=== PATIENT | female | born 1995 | race Caucasian/White ===

== ENCOUNTER 2020-03-27 20:20 | Emergency (ER) | payer SELFPAY ==
[2020-03-27 20:23] VITALS: BP 130/93; PULSE 99; RESP 16; O2SAT 100; BMI 27.4
--- NOTE | 2020-03-27 20:23 | ED_ITS ---
HPI - Overdose General: Chief Complaint: Overdose Stated Complaint: HEROIN OD Time Seen by Provider: 03/27/20 20:21 Source: patient Mode of arrival: ambulatory Limitations: no limitations History of Present Illness: HPI Narrative: 25-year-old female who was found unresponsive and given intranasal Narcan by police. When EMS arrived they states she was agonal breathing and unresponsive but since is now awake. She admitted to using heroin. She denies any suicide attempt and states she was using it recreationally. She has no complaints at that time. complaint: accidental overdose Onset (ago): minute(s) Review of Systems Const: Denies: fever(s), chills, body aches or change in appetite Eyes: Denies: blurry vision or eye discomfort ENMT: Denies: throat pain or dental pain Card: Denies: chest pain Resp: Denies: dyspnea GI: Denies: abdominal pain, nausea, vomiting or diarrhea : Denies: dysuria Musc: Denies: neck pain or back pain Skin/Breast: Denies: rash Neuro: Denies: headache(s) Psych: Denies: depression Alek/Lymph: Denies: easy bruising All/Imm: Denies: urticaria PFSH ED PFSH: Family History Denies family history of Diabetes CAD (coronary artery disease) Clotting disorder Dementia Hyperlipidemia Psychiatric illness Chronic kidney disease (CKD) Suicide Anesthesia complication Bleeding disorder Family history of premature coronary artery disease Lung disease Cancer Hypertension Stroke Social History Smoking and tobacco status: current every day smoker Physical Exam Const: COMMON NORMALS: no acute distress, patient oriented x3 and healthy appearing HENMT: COMMON NORMALS: normocephalic and atraumatic HEAD & SCALP: normocephalic and atraumatic Eye: COMMON NORMALS: Equal, round and reactive pupils present and EOMs intact bilaterally PUPIL: Yes Equal, round and reactive pupils present Neck/C-Spine: COMMON NORMALS: full ROM and supple Chest: COMMONS NORMALS: normal inspection of the chest and normal palpation of entire chest wall Resp: COMMON NORMALS: normal respiratory effort, No retractions, No use of accessory muscles and clear to auscultation bilaterally AUSCULTATION: clear to auscultation bilaterally Cardio: COMMON NORMALS: regular rate, regular rhythm and No murmurs present (Cardio) RATE: regular rate RHYTHM: regular rhythm GI: COMMON NORMALS: Normal to inspection, nondistended, normoactive bowel sounds present, Soft to palpation, non-tender and no masses PALPATION: Yes Soft to palpation Extremity: COMMON NORMALS: normal to inspection and full ROM Neuro: COMMON NORMALS: patient oriented x3, moves all extremities and no focal motor deficits Psych: COMMON NORMALS: mental status grossly normal, Normal thought process present and cooperative THOUGHT PROCESS: Normal thought process present Skin: COMMON NORMALS: no rashes or lesions noted and no wounds GENERAL SKIN EXAM: no rashes or lesions noted Course Vital Signs: Vital signs: Vital Signs Pulse Rate 110 H 03/27/20 20:57 Respiratory Rate 22 H 03/27/20 20:57 Blood Pressure 126/98 03/27/20 20:57 Pulse Oximetry 100 03/27/20 20:57 MDM - Overdose MDM Narrative: Medical decision making narrative: 25-year-old presents here with drug overdose on heroin. Patient is now awake and alert after Narcan is watched here for over an hour. Patient refused any blood draw and states she would like to leave. Patient signed out AMA. Patient has medical decision make capacity and understands the risks. Patient is not suicidal. Discharge Plan Discharge Patient Disposition: Home, Self-Care Clinical Impression: Drug overdose Qualifiers: Encounter type: initial encounter Injury intent: accidental or unintentional Qualified Code(s): T50.901A - Poisoning by unspecified drugs, medicaments and biological substances, accidental (unintentional), initial encounter Condition: Stable Prescriptions: No Action No Known Home Medications RF: 0 Discharge Orders: Discharge Order (Routine); Ordered 03/27/20 Ordered By: Inna Ibrahim Referrals: Tom Gandhi MD [Primary Care Provider] - 1-3 days Discharge Diet: Advance as tolerated Discharge Activity: Resume usual activity Patient Instructions: Polysubstance Abuse (ED) Coding Level of Care Code ED Rehabilitation Supervisor for Arlette Fwd Exam Comprehensive
[2020-03-27] MEDS: sodium chloride 0.9% 1,000 ML 999 ML IV (20:36)
[2020-03-27 20:57] VITALS: BP 126/98; PULSE 110; RESP 22; O2SAT 100
[2020-03-27 21:44] VITALS: BP 99/60; PULSE 100; RESP 20; O2SAT 100
== END 2020-03-27 21:45 | disposition home or self-care (01) ==
PROVIDERS: Emergency Provider Emergency Medicine; PCP Family Medicine
DX: T40.1X1A Poisoning by heroin, accidental (unintentional), initial encounter (principal); F17.210 Nicotine dependence, cigarettes, uncomplicated
CPT/HCPCS: 12345; 96360; 99282; J7030

== ENCOUNTER 2020-06-19 08:23 | Emergency (ER) | payer MEDICAID, SELFPAY ==
[2020-06-19] VITALS (8 sets, daily range): BP systolic 114–118; BP diastolic 82–85; PULSE 82–146; RESP 15–31; TEMP 36.4; O2SAT 98–100; BMI 25.6
--- NOTE | 2020-06-19 08:26 | ECG_ITS ---
Test Date: 2020-06-19 Pat Name: Sallie Hyde Department: Room: Gender: Female Door Person: : 1995 Requested By: Gustavo Beltran Order Number: [id number] Carlene MD: Mahad Santizo M.D. Measurements Intervals [place] Rate: 105 P: 55 MN: 125 QRS: 84 QRSD: 93 T: 44 QT: 345 QTc: 458 Interpretive Statements SINUS TACHYCARDIA Compared to ECG 09/13/2018 07:03:04 Sinus tachycardia now present Electronically Signed On 06-19-2020 19:20:09 CDT by Mahad Santizo M.D. [id number]
--- NOTE | 2020-06-19 08:26 | CT_ITS ---
WS: [id number] EXAM: CT head wo con* [id number] DATE OF EXAMINATION: 06/19/2020, 0853 hours COMPARISON: None. HISTORY: 25 years old with overdose. Altered mental status. TECHNIQUE: Thin slice imaging obtained through the brain without the utilization of contrast. Images viewed in b rain, subdural and bone window with reconstructions. CONTRAST: None DLP: 707.[address] scans at [facility] use at least one of these dose optimization techniques: automat ed exposure control; mA and/or kV adjustment per patient size (includes targeted exams where dose is matched to clinical indication); or iterative reconstruction. FINDINGS: Toussaint-white differentiation is normal. No findings of hemorrhage, hydrocephalus, mass, mass effect or abnormal extra-axial fluid collection is seen. No acute skull abnormality is demonstrated. Extracalv arial soft tissues are unremarkable. Mastoid air cells are pneumatized and well aerated. Some minimal chronic sinusitis changes demonstrated. CT/CT head wo con* [id number] IMPRESSION: No acute intracranial process.
--- NOTE | 2020-06-19 08:26 | XR_ITS ---
WS: [id number] EXAM: AP CHEST: PORTABLE UPRIGHT DATE OF EXAM: 06/19/2020, 0858 hours COMPARISON: Chest x-ray from 09/13/2018 HISTORY: Patient is 25 years old with dyspnea and cough. FINDINGS: The cardiac silhouette is normal in size. The mediastinal contours are normal. The pulmonary vas cularity is normal. The lungs are clear of infiltrate. There is no effusion or pneumothorax. There appears to be an IV catheter overlying the area of the right breast. Please correlate clinically. XR/XR chest 1V portable [id number] IMPRESSION: No acute pulmonary disease.
[2020-06-19] MEDS: naloxone 0.4 mg/ml SDV IVP (08:31)
[2020-06-19 08:40] LABS: Basophils % 0.5 %; Eosinophils # 0.3 10^3/uL (0.0-0.8); Eosinophils % 3.2 %; Hematocrit 35.9 % (37.0-47.0); Lymphocytes # 2.9 10^3/uL (0.8-4.8); Lymphocytes % 37.2 %; Mean Corpuscular HGB Conc 33.4 g/dL (30.0-36.0); Mean Corpuscular Volume 86.7 fL (81-99); Mean Platelet Volume 9.8 fL (7.4-10.4); Monocytes # 0.5 10^3/uL (0.2-0.9); Monocytes % 6.2 %; Neutrophils # 4.15 10^3/uL (1.8-7.7); Neutrophils % 52.5 %; Nucleated Red Blood Cells % 0 %; Platelet Count 187 10^3/cmm (130-400); Red Blood Count 4.14 10^6/uL (4.1-5.3); Red Cell Distribution Width 13.3 % (12.1-15.1); White Blood Count 7.9 10^3/uL (4.0-10.0)
[2020-06-19] MEDS: sodium chloride 0.9% 1,000 ML 999 ML IV (08:43)
[2020-06-19] MEDS: ondansetron 2 mg/ML SDV 2 mL 4 MG IVP (08:43)
[2020-06-19 08:50] LABS: ABG PCO2 22.2 mmHg (35-45); ABG PH Result 7.54 (7.35-7.45); Arterial Blood Gas Hematocrit 34.5 % (37-47); Base Excess ABG -1.8 mmol/L (-2.0-2.0); Blood Gas Allen Test Pos; Blood Gas Operator Identificat CAK; Blood Gas Sample Site Radial, left; Blood Gas Sample Type Arterial; HCO3 ABG 19.2 mmol/L (22-26); HGB O2 Sat 94.9 % (95-100); Ionized Calcium Level - ABG 1.1 mmol/L (1.1-1.4); Methemoglobin 0.9 % (0.4-1.5); Oxygen Device ROOM AIR; Oxygen Saturation ABG 99.7; Total Hemoglobin 11.2 g/dL (12-16)
--- NOTE | 2020-06-19 08:50 | PC.NURSE ---
Patient alert and oriented after 0.4mg of narcan. Patient verbalzied that she is an IV drug user and uses drugs daily. Shot up 30mg of Emily .
--- NOTE | 2020-06-19 08:52 | W.ED.OVERDOS ---
HPI - Overdose General: Chief Complaint: Overdose Stated Complaint: OD Time Seen by Provider: 06/19/20 08:25 History of Present Illness: HPI Narrative: 25 YO female arrived via private vehicle. Her significant other came into the entrance asking for assistance that she was in the backseat of her car unresponsive. Myself and the ER staff responded with a gurney and we placed her on the gurney brought her into the emergency room. She was poorly responsive was mumbling answering 1 and 2 words at the time she admitted to taking 30 mg of oxycodone IV. She did have track santamaria obvious on the antecubital fossa medially on the right arm. Patient's last 2 visits to the emergency room were due to an overdose of heroin. Patient is emergently given Narcan and responded well. She denies taking any other medications this morning. She did use some more narcotics last night and also used ecstasy last night. Patient states she is convinced that there was something else in the oxycodone she injected because normally she uses in her words I use a lot of narcotics and 30 mg of oxycodone would not affect me that way Review of Systems Const: Denies: fever(s), chills, body aches, change in appetite, fatigue or malaise Card: Denies: chest pain, edema, dyspnea on exertion or orthopnea Resp: Denies: dyspnea, productive cough or non-productive cough GI: Denies: abdominal pain, nausea, vomiting, hematemesis, coffee ground emesis, diarrhea, constipation, bloating, hematochezia or melena : Denies: flank pain, difficulty voiding, dysuria, urinary frequency or urinary urgency [facility] ED PFSH: Medical History (Updated 06/19/20 @ 10:01 by Gustaov Orona DO) History of substance abuse Family History Denies family history of Diabetes CAD (coronary artery disease) Clotting disorder Dementia Hyperlipidemia Psychiatric illness Chronic kidney disease (CKD) Suicide Anesthesia complication Bleeding disorder Family history of premature coronary artery disease Lung disease Cancer Hypertension Stroke Social History Smoking and tobacco status: current every day smoker Physical Exam Const: ORIENTATION/CONSCIOUSNESS: Yes oriented to person, Yes oriented to place and Yes oriented to time HENMT: COMMON NORMALS: normocephalic, atraumatic and hearing grossly normal bilaterally HEAD & SCALP: normocephalic and atraumatic Eye: COMMON NORMALS: Equal, round and reactive pupils present, EOMs intact bilaterally, conjunctivae normal and no scleral icterus CONJUNCTIVA: Yes conjunctivae normal PUPIL: Yes Equal, round and reactive pupils present Neck/C-Spine: COMMON NORMALS: full ROM, no lymphadenopathy, supple and no JVD Lymph: LYMPHATIC: no lymphadenopathy noted and no lymphedema noted Resp: COMMON NORMALS: normal respiratory effort, No retractions, No use of accessory muscles and clear to auscultation bilaterally AUSCULTATION: clear to auscultation bilaterally Cardio: COMMON NORMALS: no JVD, regular rate, regular rhythm and No murmurs present (Cardio) RATE: regular rate RHYTHM: regular rhythm GI: COMMON NORMALS: Soft to palpation and No hepatosplenomegaly present AUSCULTATION: Yes normoactive bowel sounds PALPATION: Yes Soft to palpation, No Tenderness to palpation present (GI), No Guarding due to palpation present (GI) and Yes No hepatosplenomegaly present Extremity: COMMON NORMALS: normal to inspection, capillary refill normal, no clubbing, cyanosis or edema, no calf tenderness and no pedal edema Neuro: SENSORIUM/ORIENTATION: Yes oriented to person, Yes oriented to place and Yes oriented to time Skin: COMMON NORMALS: no rashes or lesions noted GENERAL SKIN EXAM: no rashes or lesions noted Course Vital Signs: Vital signs: Vital Signs Temperature 97.6 F 06/19/20 08:32 Pulse Rate 109 H 06/19/20 09:32 Respiratory Rate 18 06/19/20 09:32 Blood Pressure 114/82 06/19/20 09:32 Pulse Oximetry 100 06/19/20 09:32 MDM - Overdose MDM Narrative: Medical decision making narrative: Initially patient was lethargic poorly responsive. After a dose of Narcan she was awake and alert and oriented. Patient did admit that there is a potential that she was which was confirmed by serum qualitative beta-hCG. Patient remained alert and oriented. Her significant other appeared to be under the influence when we encountered him in the parking lot she had asked that he come back and be able to see her and we elected to hold off on that for now. The patient remained awake alert oriented at the left AMA the nurse did try to dissuade her. I was seeing another patient at the time by the time they were able to notify me she had already left the department. The nurse did advise her that she was to make her aware. Lab Data: Labs: Lab Results 06/19/20 06/19/20 06/19/20 Range/Units 08:35 08:35 08:35 WBC 7.9 (4.0-10.0) 10^3/ uL RBC 4.14 (4.1-5.3) 10^6/u L Hgb 12.0 (11.5-15.3) g/dL Hct 35.9 L (37.0-47.0) % MCV 86.7 (81-99) fL MCH 29.0 (28.0-34.0) pg MCHC 33.4 (30.0-36.0) g/dL RDW 13.3 (12.1-15.1) % Plt Count 187 (130-400) 10^3/c mm MPV 9.8 (7.4-10.4) fL Neut % (Auto) 52.5 % Lymph % (Auto) 37.2 % [place] % (Auto) 6.2 % Eos % (Auto) 3.2 % Baso % (Auto) 0.5 % Neut # (Auto) 4.15 (1.8-7.7) 10^3/u L Lymph # (Auto) 2.9 (0.8-4.8) 10^3/u L [place] # (Auto) 0.5 (0.2-0.9) 10^3/u L Eos # (Auto) 0.3 (0.0-0.8) 10^3/u L Baso # (Auto) 0.0 (0.0-0.1) 10^3/u L Nucleated RBC % (a uto) 0 % Nucleated RBCs # 0.0 /100WBC Specimen Type Sample Site ABG pH (7.35-7.45) ABG pCO2 (35-45) mmHg ABG pO2 (80.0-100.0) mmH g ABG HCO3 (22-26) mmol/L ABG O2 Saturation ABG Base Excess (-2.0-2.0) mmol/ L Jesse Test A-a O2 Gradient Hematocrit (37-47) % Hgb O2 Saturation (95-100) % Carboxyhemoglobin (0.4-20.1) %THgb Methemoglobin (0.4-1.5) % Total Hemoglobin (12-16) g/dL Ionized Calcium (1.1-1.4) mmol/L O2 Delivery Device FiO2 % [place] Joiner ID Sodium 139 (136-145) mmol/L Potassium 3.4 L (3.5-5.1) mmol/L Chloride 102 (98-107) mmol/L Carbon Dioxide 23 (22-29) mmol/L Anion Gap 17.4 (5-19) BUN 7 (6-20) mg/dL Creatinine 0.5 (0.5-0.9) mg/dL GFR Calculation 152.9 H (90-130) mL/min Glucose 151 H (65-115) mg/dL Calculated Osmolal ity 287 (285-295) mOsm/k g Calcium 8.7 (8.5-10.5) mg/dL Magnesium 1.9 (1.7-2.3) mg/dL Total Bilirubin 0.2 (0.15-1.2) mg/dL AST 36 H (0-32) U/L ALT 36 H (0-33) U/L Alkaline Phosphata se 73 (35-105) IU/L Creatine Kinase 38 (26-192) U/L Total Protein 7.2 (6.6-8.7) g/dL Albumin 4.0 (3.5-5.2) g/dL Globulin 3.2 (1.3-4.6) g/dL HCG, Qual Positive H (Negative) Urine Color (Yellow) Urine Appearance (CLEAR) Urine pH (5-7) Ur Specific Gravit y (1.005-1.030) Urine Protein (Negative) Urine Glucose (UA) (Normal) Urine Ketones (Negative) Urine Blood (Negative) Urine Nitrate (Negative) Urine Bilirubin (NEGATIVE) Urine Urobilinogen (Negative) mg/dL Ur Leukocyte Lorraine ase (Negative) Urine RBC (0-2) /hpf Urine WBC (0-5) /hpf Ur Squamous Epith Cells (0-5) Amorphous Sediment Urine Bacteria (NONE) Urine Mucus Urine Trichomonas Urine Yeast Salicylates < 0.3 L (3-10) mg/dL Urine Opiates Scre en (Negative) ng/mL Acetaminophen < 5.0 L (10-30) ug/mL Ur Barbiturates Sc reen (Negative) ng/mL Ur Phencyclidine S crn (Negative) ng/mL Ur Amphetamines Sc reen (Negative) ng/mL U Benzodiazepines Scrn (Negative) ng/mL Urine Cocaine Scre en (Negative) ng/mL U Marijuana (THC) Screen (Negative) ng/mL Ethyl Alcohol < 10 (0-10) mg/dL 06/19/20 06/19/20 06/19/20 Range/Units 08:39 08:40 08:40 WBC (4.0-10.0) 10^3/ uL RBC (4.1-5.3) 10^6/u L Hgb (11.5-15.3) g/dL Hct (37.0-47.0) % MCV (81-99) fL MCH (28.0-34.0) pg MCHC (30.0-36.0) g/dL RDW (12.1-15.1) % Plt Count (130-400) 10^3/c mm MPV (7.4-10.4) fL Neut % (Auto) % Lymph % (Auto) % [place] % (Auto) % Eos % (Auto) % Baso % (Auto) % Neut # (Auto) (1.8-7.7) 10^3/u L Lymph # (Auto) (0.8-4.8) 10^3/u L [place] # (Auto) (0.2-0.9) 10^3/u L Eos # (Auto) (0.0-0.8) 10^3/u L Baso # (Auto) (0.0-0.1) 10^3/u L Nucleated RBC % (a uto) % Nucleated RBCs # /100WBC Specimen Type Arterial Sample Site Radial, left ABG pH 7.54 H (7.35-7.45) ABG pCO2 22.2 L (35-45) mmHg ABG pO2 124.0 H (80.0-100.0) mmH g ABG HCO3 19.2 L (22-26) mmol/L ABG O2 Saturation 99.7 ABG Base Excess -1.8 (-2.0-2.0) mmol/ L Jesse Test Pos A-a O2 Gradient Not Reportable Hematocrit 34.5 L (37-47) % Hgb O2 Saturation 94.9 L (95-100) % Carboxyhemoglobin 4.0 (0.4-20.1) %THgb Methemoglobin 0.9 (0.4-1.5) % Total Hemoglobin 11.2 L (12-16) g/dL Ionized Calcium 1.1 (1.1-1.4) mmol/L O2 Delivery Device Room air FiO2 21.0 % [place] Joiner ID Cak Sodium 139.0 (136-145) mmol/L Potassium 3.0 L (3.5-5.1) mmol/L Chloride (98-107) mmol/L Carbon Dioxide (22-29) mmol/L Anion Gap (5-19) BUN (6-20) mg/dL Creatinine (0.5-0.9) mg/dL GFR Calculation (90-130) mL/min Glucose 139.0 H (65-115) mg/dL Calculated Osmolal ity (285-295) mOsm/k g Calcium (8.5-10.5) mg/dL Magnesium (1.7-2.3) mg/dL Total Bilirubin (0.15-1.2) mg/dL AST (0-32) U/L ALT (0-33) U/L Alkaline Phosphata se (35-105) IU/L Creatine Kinase (26-192) U/L Total Protein (6.6-8.7) g/dL Albumin (3.5-5.2) g/dL Globulin (1.3-4.6) g/dL HCG, Qual (Negative) Urine Color Yellow (Yellow) Urine Appearance Hazy A (CLEAR) Urine pH 5 (5-7) Ur Specific Gravit y 1.025 (1.005-1.030) Urine Protein 1+ H (Negative) Urine Glucose (UA) Norm (Normal) Urine Ketones Negative (Negative) Urine Blood Neg (Negative) Urine Nitrate Positive H (Negative) Urine Bilirubin Neg (NEGATIVE) Urine Urobilinogen 1 H (Negative) mg/dL Ur Leukocyte Lorraine ase Trace H (Negative) Urine RBC None (0-2) /hpf Urine WBC 15-25 H (0-5) /hpf Ur Squamous Epith Cells 0-4 H (0-5) Amorphous Sediment Not Reportable Urine Bacteria 4+ H (NONE) Urine Mucus 1+ Urine Trichomonas 1+ H Urine Yeast 2+ H Salicylates (3-10) mg/dL Urine Opiates Scre en Positive H (Negative) ng/mL Acetaminophen (10-30) ug/mL Ur Barbiturates Sc reen Negative (Negative) ng/mL Ur Phencyclidine S crn Negative (Negative) ng/mL Ur Amphetamines Sc reen Positive H (Negative) ng/mL U Benzodiazepines Scrn Positive H (Negative) ng/mL Urine Cocaine Scre en Negative (Negative) ng/mL U Marijuana (THC) Screen Negative (Negative) ng/mL Ethyl Alcohol (0-10) mg/dL Discharge Plan Discharge Patient Disposition: Left Against Medical Advice Clinical Impression: Drug overdose, History of substance abuse, Prescriptions: No Action No Known Home Medications RF: 0 Referrals: Tom Gandhi MD [Primary Care Provider] - Interventions: ED Discharge Assessment Last Done: 06/19/20 09:32 ED Charges Last Done: 06/19/20 08:40 Discharge Date/Time: 06/19/20 09:35 Coding Level of Care Code ED Supervisor Newspaper Deliveries for Arlette Mcdaniels
--- NOTE | 2020-06-19 09:01 | PC.NURSE ---
Patient in CT at this time.
--- NOTE | 2020-06-19 09:05 | PC.NURSE ---
Patient back into room, patient alert and oriented. Looking around room.
[2020-06-19 09:18] LABS: HCG, Serum Qual Positive (Negative)
[2020-06-19 09:24] LABS: Alanine Aminotransferase 36 U/L (0-33); Alkaline Phosphatase 73 IU/L (35-105); Anion Gap 17.4 (5-19); Aspartate Amino Transferase 36 U/L (0-32); Blood Urea Nitrogen 7 mg/dL (6-20); Calcium 8.7 mg/dL (8.5-10.5); Carbon Dioxide 23 mmol/L (22-29); Chloride 102 mmol/L (98-107); Creatine Phosphokinase 38 U/L (26-192); Globulin 3.2 g/dL (1.3-4.6); Glomerular Filtration Rate 152.9 mL/min (90-130); Glucose 151 mg/dL (65-115); Magnesium 1.9 mg/dL (1.7-2.3); Osmolality Calculated 287 mOsm/kg (285-295); Potassium 3.4 mmol/L (3.5-5.1); Sodium 139 mmol/L (136-145); Total Bilirubin 0.2 mg/dL (0.15-1.2); Total Protein 7.2 g/dL (6.6-8.7)
[2020-06-19 09:25] LABS: Acetaminophen < 5.0 ug/mL (10-30); Alcohol Level < 10 mg/dL (0-10); Salicylate < 0.3 mg/dL (3-10)
[2020-06-19 09:32] LABS: Amphetamines Screen Urine Positive (Negative); Barbiturates Screen Urine Negative (Negative); Benzodiazepines Screen Urine Positive (Negative); Cocaine Screen Urine Negative (Negative); Opiate Screen Urine Positive (Negative); PCP Screen Urine Negative (Negative); THC Screen Urine Negative (Negative)
[2020-06-19 09:34] LABS: Add Urine Microscopic? YES; Bilirubin Urine Neg (NEGATIVE); Blood Urine Neg (Negative); Glucose Urine UA Norm (Normal); Ketones Urine Negative (Negative); Leukocyte Esterase Urine Trace (Negative); Nitrate Urine Positive (Negative); Protein Urine 1+ (Negative); Specific Gravity, Urine 1.025 (1.005-1.030); Urine Appearance Hazy (CLEAR); Urine Color Yellow (Yellow); Urobilinogen Urine 1 mg/dL (Negative); WBC Urine 15-25 /hpf (0-5); pH Urine 5 (5-7)
[2020-06-19 09:35] LABS: Add Urine Culture? Yes; Bacteria Urine 4+; Mucus Urine 1+; Squamous Epithelial Cell Urine 0-4 (0-5); Trichomonas Urine 1+
--- NOTE | 2020-06-19 11:31 | ECG_ITS ---
[facility] Test Date: 2020-06-19 Pat Name: Sallie Hyde Department: Room: Gender: Female Head Start Coordinator: : 1995 Requested By: Gustavo Beltran Order Number: [id number] Carlene MD: Mahad Santizo M.D. Measurements Intervals [place] Rate: 103 P: 66 FL: 127 QRS: 83 QRSD: 81 T: 39 QT: 331 QTc: 434 Interpretive Statements SINUS TACHYCARDIA NONSPECIFIC T-WAVE ABNORMALITY ABNORMAL RHYTHM ECG Compared to ECG 09/13/2018 07:03:04 T-wave abnormality now present Sinus rhythm no longer present Electronically Signed On 06-19-2020 19:20:37 CDT by Mahad Santizo M.D. [id number]
== END 2020-06-19 09:35 | disposition left against medical advice (07) ==
PROVIDERS: Emergency Provider Family Medicine; PCP Family Medicine
DX: O99.320 Drug use complicating pregnancy, unspecified trimester (principal); F11.10 Opioid abuse, uncomplicated; Z3A.00 Weeks of gestation of pregnancy not specified; O99.330 Smoking (tobacco) complicating pregnancy, unspecified trimester; F17.210 Nicotine dependence, cigarettes, uncomplicated
CPT/HCPCS: 12345; 36600; 70450; 71045; 80051; 80053; 80306; 80307; 81001; 82550; 82810; 83735; 83986; 84703; 85025; 87077; 87086; 87186; 93005; 96361; 96374; 96375; 99283; 99284; J2310; J2405; J7030

== ENCOUNTER → 2020-08-06 11:07 | Outpatient (BNVA) | payer MEDICAID, SELFPAY | PROVIDERS: PCP Family Medicine; Visit Provider Nurse Practitioner | DX: R35.0 Frequency of micturition (principal) | CPT/HCPCS: 81000; 87086 ==

== ENCOUNTER 2020-08-21 11:22 | Emergency (ER) | payer MEDICAID, SELFPAY ==
[2020-08-21 12:25] VITALS: BP 97/62; PULSE 97; RESP 18; TEMP 36.7; O2SAT 96; BMI 25.6
[2020-08-21 15:11] LABS: Basophils % 0.3 %; Eosinophils # 0.1 10^3/uL (0.0-0.8); Eosinophils % 0.4 %; Hematocrit 32.5 % (37.0-47.0); Hemoglobin 10.6 g/dL (11.5-15.3); Lymphocytes # 3.2 10^3/uL (0.8-4.8); Lymphocytes % 23.7 %; Mean Corpuscular HGB Conc 32.6 g/dL (30.0-36.0); Mean Corpuscular Hemoglobin 29.4 pg (28.0-34.0); Mean Corpuscular Volume 90.3 fL (81-99); Monocytes # 0.6 10^3/uL (0.2-0.9); Monocytes % 4.5 %; Neutrophils % 70.6 %; Nucleated Red Blood Cells % 0 %; Platelet Count 207 10^3/cmm (130-400); Red Cell Distribution Width 14.7 % (12.1-15.1); White Blood Count 13.5 10^3/uL (4.0-10.0)
[2020-08-21 15:46] LABS: Alanine Aminotransferase 61 U/L (0-33); Albumin Level 3.6 g/dL (3.5-5.2); Alkaline Phosphatase 113 IU/L (35-105); Anion Gap 13.3 (5-19); Aspartate Amino Transferase 38 U/L (0-32); Blood Urea Nitrogen 6 mg/dL (6-20); Calcium 9.3 mg/dL (8.5-10.5); Carbon Dioxide 24 mmol/L (22-29); Chloride 100 mmol/L (98-107); Globulin 3.7 g/dL (1.3-4.6); Glomerular Filtration Rate 123.9 mL/min (90-130); Glucose 82 mg/dL (65-115); Lipase 15 U/L (13-60); Osmolality Calculated 273 mOsm/kg (285-295); Potassium 4.3 mmol/L (3.5-5.1); Sodium 133 mmol/L (136-145); Total Bilirubin 0.5 mg/dL (0.15-1.2); Total Protein 7.3 g/dL (6.6-8.7)
== END 2020-08-21 18:00 | disposition left against medical advice (07) ==
LOC: ER 11:33
PROVIDERS: Physician Assistant; Emergency Provider Family Medicine; PCP Family Medicine
DX: Z53.21 Procedure and treatment not carried out due to patient leaving prior to being seen by health care provider (principal)
CPT/HCPCS: 36415; 80053; 83690; 85025; 99281

== ENCOUNTER 2020-09-11 15:39 | Emergency (ER) | payer MEDICAID, SELFPAY ==
[2020-09-11 15:47] VITALS: BP 98/66; PULSE 98; RESP 18; TEMP 36.5; O2SAT 96; BMI 27.4
--- NOTE | 2020-09-11 16:00 | ED_ITS ---
HPI - GI Bleed General: Chief complaint: GI Bleed Stated complaint: blood in stool Time Seen by Provider: 09/11/20 15:54 Source: patient Mode of arrival: ambulatory Limitations: no limitations History of Present Illness: HPI Narrative: Perla is a 25-year-old female states she straining going to the bathroom earlier notices some blood in her stool and felt a mass and feels like she may have a hemorrhoid. She states she has had constipation due to Suboxone. She states that she has no pain currently she has not had any more bloody stools. Denies any worsening or improving factors. She has not been seen for this before. Associated symptoms: Denies chills, easy bruising, fever(s), headache(s) or rash Review of Systems Const: Denies: fever(s), chills, body aches or change in appetite Eyes: Denies: blurry vision or eye discomfort ENMT: Denies: throat pain or dental pain Card: Denies: chest pain Resp: Denies: dyspnea GI: Reports: constipation and rectal pain : Denies: dysuria Musc: Denies: neck pain or back pain Skin/Breast: Denies: rash Neuro: Denies: headache(s) Psych: Denies: depression Alek/Lymph: Denies: easy bruising All/Imm: Denies: urticaria PFSH ED PFSH: Medical History (Updated 09/11/20 @ 16:00 by Inna Ibrahim MD) History of substance abuse Family History Denies family history of Diabetes CAD (coronary artery disease) Clotting disorder Dementia Hyperlipidemia Psychiatric illness Chronic kidney disease (CKD) Suicide Anesthesia complication Bleeding disorder Family history of premature coronary artery disease Lung disease Cancer Hypertension Stroke Social History Smoking and tobacco status: current every day smoker Physical Exam Const: COMMON NORMALS: no acute distress, patient oriented x3 and healthy appearing HENMT: COMMON NORMALS: normocephalic and atraumatic HEAD & SCALP: n ormocephalic and atraumatic Eye: COMMON NORMALS: Equal, round and reactive pupils present and EOMs intact bilaterally PUPIL: Yes Equal, round and reactive pupils present Neck/C-Spine: COMMON NORMALS: full ROM and supple Chest: COMMONS NORMALS: normal inspection of the chest and normal palpation of entire chest wall Resp: COMMON NORMALS: normal respiratory effort, No retractions, No use of accessory muscles and clear to auscultation bilaterally AUSCULTATION: clear to auscultation bilaterally Cardio: COMMON NORMALS: regular rate, regular rhythm and No murmurs present (Cardio) RATE: regular rate RHYTHM: regular rhythm GI: COMMON NORMALS: Normal to inspection, nondistended, normoactive bowel sounds present, Soft to palpation, non-tender and no masses PALPATION: Yes Soft to palpation : OTHER: Hemorrhoid noted with no blood Extremity: COMMON NORMALS: normal to inspection and full ROM Neuro: COMMON NORMALS: patient oriented x3, moves all extremities and no focal motor deficits Psych: COMMON NORMALS: mental status grossly normal, Normal thought process present and cooperative THOUGHT PROCESS: Normal thought process present Skin: COMMON NORMALS: no rashes or lesions noted and no wounds GENERAL SKIN EXAM: no rashes or lesions noted Course Vital Signs: Vital signs: Vital Signs Temperature 97.7 F 09/11/20 15:47 Pulse Rate 98 09/11/20 15:47 Respiratory Rate 18 09/11/20 15:47 Blood Pressure 98/66 09/11/20 15:47 Pulse Oximetry 96 09/11/20 15:47 MDM - GI Bleed MDM Narrative: Medical decision making narrative: Patient presents here with hemorrhoids likely from constipation due to her Suboxone. She is to take stool softeners and Anusol. She is stable for discharge and is return if worsening. Discharge Plan Discharge Patient Disposition: Home Clinical Impression: Hemorrhoids Qualifiers: Hemorrhoid type: unspecified Qualified Code(s): K64.9 - Unspecified hemorrhoids Condition: Stable Prescriptions: New Colace 100 mg capsule 100 mg PO BID Qty: 60 RF: 0 Anusol-HC 2.5 % cream with perineal applicator 1 applic OR Q12H PRN (Reason: hemorrhoids) Qty: 30 RF: 0 No Action nitrofurantoin monohyd/m-cryst [Macrobid] 100 mg capsule 100 mg PO Q12H 7 Days Qty: 14 RF: 0 Discharge Orders: Discharge Order (Routine); Ordered 09/11/20 Ordered By: Inna Ibrahim Referrals: [place],Jaycob, MD [Primary Care Provider] - 1-3 days Discharge Diet: Advance as tolerated Discharge Activity: Resume usual activity Patient Instructions: Hemorrhoids (ED) Coding Level of Care Code ED Bedspread Cutter for Arlette Mcdaniels
== END 2020-09-11 16:08 | disposition home or self-care (01) ==
PROVIDERS: Emergency Provider Emergency Medicine; PCP Family Medicine
DX: K64.9 Unspecified hemorrhoids (principal); F17.210 Nicotine dependence, cigarettes, uncomplicated
CPT/HCPCS: 12345; 99281; 99282

== ENCOUNTER 2020-12-31 19:45 | Inpatient (IN) | payer MEDICAID, SELFPAY ==
[2020-12-31 19:45] VITALS: BMI 29.8
[2020-12-31 20:07] VITALS: BP 116/86; PULSE 99
[2020-12-31] MEDS: miSOPROStol 100 mcg tablet 25 MCG VAGINAL (21:17)
[2020-12-31 21:46] LABS: Amphetamines Screen Urine Negative (Negative); Barbiturates Screen Urine Negative (Negative); Benzodiazepines Screen Urine Negative (Negative); Cocaine Screen Urine Negative (Negative); Opiate Screen Urine Negative (Negative); PCP Screen Urine Negative (Negative); THC Screen Urine Negative (Negative)
[2020-12-31 22:32] LABS: Basophils % 0.3 %; Eosinophils # 0.1 10^3/uL (0.0-0.8); Eosinophils % 0.8 %; Hematocrit 32.9 % (37.0-47.0); Hemoglobin 10.7 g/dL (11.5-15.3); Lymphocytes # 1.8 10^3/uL (0.8-4.8); Lymphocytes % 16.4 %; Mean Corpuscular HGB Conc 32.5 g/dL (30.0-36.0); Mean Corpuscular Hemoglobin 28.5 pg (28.0-34.0); Mean Corpuscular Volume 87.7 fL (81-99); Mean Platelet Volume 11.9 fL (7.4-10.4); Monocytes # 0.6 10^3/uL (0.2-0.9); Monocytes % 5.5 %; Neutrophils # 8.57 10^3/uL (1.8-7.7); Neutrophils % 76.5 %; Nucleated Red Blood Cells % 0 %; Platelet Count 203 10^3/cmm (130-400); Red Blood Count 3.75 10^6/uL (4.1-5.3); Red Cell Distribution Width 13.8 % (12.1-15.1); White Blood Count 11.2 10^3/uL (4.0-10.0)
[2020-12-31] MEDS: lactated ringers 1,000 ML 125 ML IV (23:54)
[2020-12-31 23:58] VITALS: RESP 16
[2020-12-31] MEDS: fentaNYL 50 mcg/mL INJ 2mL IV (23:58)
[2021-01-01] VITALS (112 sets, daily range): BP systolic 84–150; BP diastolic 49–88; PULSE 55–129; RESP 16–18; TEMP 36.6–37.7; O2SAT 91–100
[2021-01-01] MEDS: fentaNYL 50 mcg/mL INJ 2mL IV ×3 (01:06→05:40)
[2021-01-01] MEDS: lactated ringers 1,000 ML 999 ML IV ×2 (04:36→16:12)
--- NOTE | 2021-01-01 05:54 | ANES.PREANE2 ---
Pre-Anesthetic Assessment Pre-Anesthetic Assessment: Height/Weight: Height 1.57 m Weight 73.936 kg Temp Pulse Resp BP 97.9 F 58 L 17 117/73 01/01/21 04:38 01/01/21 05:48 01/01/21 05:40 01/01/21 05:48 Preop Diagnosis: labor pain Familial anesthetic complications: none Was Beta Graeme taken within 24 hours: N/A Social: Social History: No alcohol and No tobacco Comment: Substance abuse history, overdose ER visits noted several times Exam: Pre-Anes Outpt Exam: alert, oriented x 3, clear to auscultation bilaterally and regular rate & rhythm Airway: Submandibular: WNL Cervical ROM: WNL MP: 2 Dentition: Full Pulmonary: Pulmonary: None reported CV/HEM: CV/HEM: None reported : : None reported Hepatic: Hepatic: Hepatitis Comments: C GI: GI: None reported Metabolic: Metabolic: None reported Musc/skel: Musc/skel: None reported Neuropsych: Neuropsych: None reported Anesthetic Plan: ASA status: 2 Anesthesia: Regional (specify below) Risk of > 500 ml blood loss (7ml/kg in children): No Meds/Allergies Current Medications: Current Medications Generic Name Dose Route Start Last Admin Trade Name Freq PRN Reason Stop Dose Admin Fentanyl 25 - 100 mcg 12/31/20 20:41 01/01/21 05:40 Fentanyl 50 Mcg/ Ml Inj 2ml IV 100 mcg Q1H PRN Administration SEVERE PAIN Lactated Ringer's 1,000 mls @ 125 m ls/hr 12/31/20 20:45 01/01/21 04:37 Lactated Ringers IV Infused .Q8H MELANY Infusion Lactated Ringer's 1,000 mls @ 999 m ls/hr 01/01/21 04:28 01/01/21 04:36 Lactated Ringers IV 999 mls/hr .Q1H1M PRN Administration See label comment s PFSH Anesthesia PFSH: Medical History (Updated 09/19/20 @ 00:00 by ) History of substance abuse Family History Denies family history of Diabetes CAD (coronary artery disease) Clotting disorder Dementia Hyperlipidemia Psychiatric illness Chronic kidney disease (CKD) Suicide Anesthesia complication Bleeding disorder Family history of premature coronary artery disease Lung disease Cancer Hypertension Stroke Social History Smoking and tobacco status: current every day smoker Female Reproductive History: : 1 Data Anesthesia CBC & Chem 7: 12/31/20 21:00 Other Labs: Laboratory Results - last 48 hr 12/31/20 12/31/20 20:15 21:00 WBC 11.2 H RBC 3.75 L Hgb 10.7 L Hct 32.9 L MCV 87.7 MCH 28.5 MCHC 32.5 RDW 13.8 Plt Count 203 MPV 11.9 H Neut % (Auto) 76.5 Lymph % (Auto) 16.4 [place] % (Auto) 5.5 Eos % (Auto) 0.8 Baso % (Auto) 0.3 Neut # (Auto) 8.57 H Lymph # (Auto) 1.8 [place] # (Auto) 0.6 Eos # (Auto) 0.1 Baso # (Auto) 0.0 Nucleated RBC % (auto) 0 Nucleated RBCs # 0.0 Urine Opiates Screen Negative Ur Barbiturates Screen Negative Ur Phencyclidine Scrn Negative Ur Amphetamines Screen Negative U Benzodiazepines Scrn Negative Urine Cocaine Screen Negative U Marijuana (THC) Screen Negative Cardiac Studies: No Data to Display
--- NOTE | 2021-01-01 06:33 | ANES.PROC ---
Anesthesia Procedures Procedure/Date: 01/01/21 epidural Procedure Narrative: epidural complete on second attempt, bolus given, epidural pump initiated with CARD LACER JACQUARD education given, vitals taken during procedure using OBIX system and satisfactory throughout, patient admits to decrease pain, report of procedure to OB RN Epidural: Time Out Performed: Yes Consents Signed: Procedure Consent Consent: requested by attending/covering physician, from patient, risks and benefits reviewed and patient agrees to proceed Lumbar Level: L3-L4 Epidural position: sitting Epidural procedure: sterile prep of area, 1% lidocaine to numb the area (3 mL), 18 g needle, negative for paresthesia passed, neg for paresthesia, test dose given, 1.5% xylocaine 1:200k epi (5 mL), 0.2% Ropivacaine bolus ml (5 mL), placed PCEA, no systemic response, sterile dressing applied, L.U.D. no apparent complications and 0.2% Ropiavacaine @ mls/hr (13 mL/hr)
[2021-01-01] MEDS: lactated ringers 1,000 ML 125 ML IV ×2 (07:01→17:15)
[2021-01-01] MEDS: oxytocin 30 UNIT/500 ML BAG IV (08:24)
[2021-01-01] MEDS: dextrose 5%-lactated ringers 1,000 ML 125 ML IV ×2 (10:41→21:09)
--- NOTE | 2021-01-01 11:12 | PM.OPHPUD ---
Labor & Delivery H&P Update Date of Procedure: January 01, 2021 Date H&P Performed: 12/28/20 H&P update information: I have reviewed H&P completed within last 30 days, I have examined patient prior to procedure and Changes to prior documentation as noted here Changes to previous documentation: The patient is 40 weeks 4 days gestation and has been admitted for postdate induction. She received 1 dose of Cytotec which proceeded to give her regular contractions, cervical change, and enough pain to require epidural placement. Once she was comfortable with the epidural she was then started on high-dose Pitocin. She just had artificial rupture of membranes with a copious amount of clear fluid. Her cervical exam was essentially unchanged from prior 2 cm, 60% effaced, -2 station. Continue expectant management. Admission Diagnosis: Preop diagnosis: labor pain
[2021-01-01] MEDS: valACYclovir 1,000 mg Tablet 1000 MG PO (16:12)
[2021-01-01 18:52] LABS: Coronavirus Test Green County Not Detected
[2021-01-01] MEDS: miSOPROStol 200 mcg Tablet 800 MCG PR (19:41)
[2021-01-01] MEDS: ketorolac 30 mg/mL INJ IM (19:50)
--- NOTE | 2021-01-01 19:57 | P.PCNOB_ITS ---
Delivery Note: Date of delivery: January 01, 2021 Delivery: This is a 25-year-old G1, P0 at 40 weeks 4 days gestation who was admitted last evening for induction due to postdates. She received a dose of Cytotec which put her into active labor so she received an epidural for pain management. She was later started on Pitocin. She underwent artificial rupture of membranes with a copious amount of clear fluids around noon. Her labor progressed well after that and when she was complete complete and +1 she was very uncomfortable with the pressure and felt like pushing. The infant's heart rate was decelerating into the 80s and 90s and did not like +2 to +3 station so at that point a vacuum was applied. There were no pop offs. The infant was delivered with the very next contraction. The was suctioned at delivery and placed on the mother's chest. The cord was clamped and cut. Cord blood was obtained. The placenta was delivered grossly intact and normal to inspection. There was a copious amount of brisk vaginal bleeding that would resolve with fun vance massage but then start back up again. Mother was given 800 mcg of Cytotec rectally. She had a second-degree perineal laceration that was sutured using 3- 0 chromic in a running fashion. Mother and were doing well after delivery Coding Level of Care Code Acute Mortgage Advisor for Arlette Mcdaniels
[2021-01-01] MEDS: lidocaine 2% INJ 20 mL INJECTION (20:26)
[2021-01-01] MEDS: acetaminophen 325 mg Tablet 650 MG PO (22:02)
[2021-01-02] VITALS (11 sets, daily range): BP systolic 96–120; BP diastolic 53–63; PULSE 62–85; RESP 18; TEMP 36.4–37.6
--- NOTE | 2021-01-02 05:03 | PC.NURSE ---
pt reports prescription for Subutex due to opioid addiction. pt brought home medication to hospital for induction of labor in an unmarked container. pt unable to produce prescription at this time.
[2021-01-02 08:41] LABS: Hematocrit 26.2 % (37.0-47.0); Hemoglobin 8.6 g/dL (11.5-15.3); Mean Corpuscular HGB Conc 32.8 g/dL (30.0-36.0); Mean Corpuscular Volume 88.2 fL (81-99); Mean Platelet Volume 11.5 fL (7.4-10.4); Platelet Count 181 10^3/cmm (130-400); Red Blood Count 2.97 10^6/uL (4.1-5.3); Red Cell Distribution Width 13.9 % (12.1-15.1); White Blood Count 16.4 10^3/uL (4.0-10.0)
[2021-01-02] MEDS: prenatal vitamin Capsule 1 CAP PO (09:01)
[2021-01-02] MEDS: ibuprofen 800 mg tablet PO ×2 (09:01→14:47)
[2021-01-02] MEDS: docusate sodium 100 mg Capsule PO ×2 (09:01→18:13)
--- NOTE | 2021-01-02 09:55 | PC.NURSE ---
DFS at bedside speaking with patient at this time
--- NOTE | 2021-01-02 10:48 | PM.OBGYPN ---
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 She does have a headache this morning. Labor: Station: +1 Amniotic Membrane Status: Leaking Monitor Mode: External Contraction Pattern: Regular Status: Category II Vitals/I&O/Wt Last Vital Signs Temp 99.7 F H 01/02/21 05:29 Pulse 72 01/02/21 05:29 Resp 18 01/01/21 21:32 BP 96/53 01/02/21 05:29 Pulse Ox 98 01/01/21 07:02 01/01/21 01/02/21 01/02/21 22:59 06:59 14:59 Intake Total 2575.1 / 2705.3 1231.25 / 3936.55 Output Total 600 / 1400 Balance 1975.1 / 1305.3 1231.25 / 2536.55 Weight last 48 hrs Weight 163 lb Physical Exam Const: COMMON NORMALS: no acute distress GENERAL APPEARANCE: cooperative and comfortable Resp: COMMON NORMALS: normal respiratory effort and clear to auscultation bilaterally AUSCULTATION: clear to auscultation bilaterally Cardio: COMMON NORMALS: regular rate and regular rhythm RATE: regular rate RHYTHM: regular rhythm GI: COMMON NORMALS: Soft to palpation (Fundus firm U- 3) and non-tender PALPATION: Yes Soft to palpation (Fundus firm U- 3) Extremity: COMMON NORMALS: no calf tenderness and no pedal edema Urinary Catheter Management^: [place]: Cath Placed During This Visit: yes, but has since been removed by the nurse Reason for Continuing Indwelling Catheter: Decision to DC Catheter Urinary Catheter Date of Insertion: 01/01/21 Urinary Catheter Time of Insertion: 06:50 Date Urinary Catheter Removed: 01/01/21 Time Urinary Catheter Discontinued: 18:57 Data : 01/02/21 08:32 A&P Assessment and plan (1) Status post vacuum-assisted vaginal delivery: Routine care Status: Acute (2) History of substance abuse: Patient was on Suboxone during the . DFS is involved. Status: Acute Attestations Medical Necessity Statement*: Routine care Coding Level of Care Code Acute President Practicing Urologist for [place] Fwd Diagnoses Status post vacuum-assisted vaginal delivery Z87.59 History of substance abuse F19.11
[2021-01-03] MEDS: ibuprofen 800 mg tablet PO ×3 (00:38→14:37)
[2021-01-03 04:28] VITALS: TEMP 36.6
[2021-01-03 04:42] VITALS: BP 96/55; PULSE 64
[2021-01-03] MEDS: acetaminophen 325 mg Tablet 650 MG PO (07:16)
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
[2021-01-03] MEDS: prenatal vitamin Capsule 1 CAP PO (09:33)
[2021-01-03] MEDS: docusate sodium 100 mg Capsule PO (09:34)
[2021-01-03 09:38] VITALS: TEMP 36.4
[2021-01-03 09:39] VITALS: BP 95/53; PULSE 70
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
--- NOTE | 2021-01-03 12:33 | PM.DCS ---
Discharge Providers Date of Admission: 12/31/20 19:45 Date of Discharge: January 03, 2021 Attending Provider at Admission: Katty Webster MD Attending Provider at Discharge: Katty Webster MD Primary Care Provider: Tom Gandhi MD Diagnoses at Discharge Discharge Diagnosis (1) Status post vacuum-assisted vaginal delivery: Status: Acute (2) History of substance abuse: Status: Acute Reason for Visit Reason for Visit: INDUCTION Hospital Course Hospital Course This is a 25-year-old G1 now P1 who was admitted for postdate induction. She had a vacuum-assisted vaginal delivery. After delivery mother and did well. She was ambulating, tolerating a regular diet, had decreased vaginal bleeding and was comfortable with discharge home. Physical Exam Const: COMMON NORMALS: no acute distress GENERAL APPEARANCE: cooperative and comfortable GI: COMMON NORMALS: Soft to palpation (Fundus is firm U- 3), non-tender, No hepatosplenomegaly present and no masses PALPATION: Yes Soft to palpation (Fundus is firm U- 3) and Yes No hepatosplenomegaly present Extremity: GENERAL: No calf tenderness and Yes edema (Slight nonpitting) Urinary Catheter Management^: [place]: Cath Placed During This Visit: yes, but has since been removed by the nurse Reason for Continuing Indwelling Catheter: Decision to DC Catheter Urinary Catheter Date of Insertion: 01/01/21 Urinary Catheter Time of Insertion: 06:50 Date Urinary Catheter Removed: 01/01/21 Time Urinary Catheter Discontinued: 18:57 Discharge Data Vitals: Last Vital Signs Temp 97.5 F L 01/03/21 09:38 Pulse 70 01/03/21 09:39 Resp 18 01/02/21 15:07 BP 95/53 01/03/21 09:39 Pulse Ox 98 01/01/21 07:02 Discharge Plan Discharge Patient Disposition: Home Condition: Stable Prescriptions: Continued buprenorphine HCl 8 mg tablet, sublingual 8 mg SUBLINGUAL QPM RF: 0 Discontinued valacyclovir 1 gram tablet 1,000 mg PO DAILY RF: 0 Discharge Orders: Discharge Order (Routine); Ordered 01/03/21 Ordered By: Katty Webster Referrals: Katty Webster MD [Physician] - 1 month Discharge Diet: Usual diet Discharge Activity: Limit activity as instructed Discharge Attestations Time Spent in Discharge Care*: less than 30 min Quality Metrics Clinical Quality Measures During this hospital stay, did patient experience: None Coding Level of Care Code Acute Data Analyst Etl Developer for Chg Fwd Diagnoses Status post vacuum-assisted vaginal delivery Z87.59 History of substance abuse F19.11
[2021-01-03] MEDS: measles,mumps,rubella pf Vial (w/diluent) 0.5 ML SUBCUT (14:37)
[2021-01-03 14:45] VITALS: BP 109/71; PULSE 68; RESP 16; TEMP 36.6
[2021-01-03 14:47] VITALS: BP 109/71; PULSE 68; RESP 16; TEMP 36.6
--- NOTE | 2021-01-03 19:48 | PC.RESP ---
Smoking Cessation information sent to patient.
== END 2021-01-03 15:00 | disposition home or self-care (01) | DRG 807 ==
PROVIDERS: Admitting Provider Family Medicine; PCP Family Medicine; Visit Provider Family Medicine
DX: O48.0 Post-term pregnancy (principal); Z37.0 Single live birth; Z3A.40 40 weeks gestation of pregnancy; O70.1 Second degree perineal laceration during delivery; Z23 Encounter for immunization; O67.8 Other intrapartum hemorrhage; O76 Abnormality in fetal heart rate and rhythm complicating labor and delivery; Z79.891 Long term (current) use of opiate analgesic
CPT/HCPCS: 36415; 51702; 59025; 59409; 80306; 85025; 85027; 87635; 90707; 96372; 99211; J1885; J2795; J3010

== ENCOUNTER → 2021-01-04 08:05 | Day surgery (SDC) | payer MEDICAID, SELFPAY ==
[2021-01-04 08:20] VITALS: BMI 27.4
[2021-01-04 08:21] VITALS: BP 109/75; PULSE 77; RESP 18; TEMP 36.1; O2SAT 99
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
--- NOTE | 2021-01-04 10:17 | PC.NURSE ---
EPIDURAL BLOOD PATCH DONE WITH STERILE PROCEDURE TECHNIQUES WITH GOOD PAIN LOWERING RESULTS
== END ==
PROVIDERS: PCP Family Medicine; Visit Provider Anesthesiology
DX: O61.9 Failed induction of labor, unspecified (principal)
CPT/HCPCS: 36415; 62273

== ENCOUNTER → 2021-01-19 16:49 | Outpatient (BNVA) | payer MEDICAID, SELFPAY | PROVIDERS: Visit Provider Nurse Practitioner Family | DX: N39.0 Urinary tract infection, site not specified (principal) | CPT/HCPCS: 81000 ==

== ENCOUNTER 2021-01-26 00:55 | Emergency (ER) | payer MEDICAID, SELFPAY ==
[2021-01-26 01:11] VITALS: BP 124/80; PULSE 96; RESP 16; TEMP 36.4; O2SAT 99; BMI 24.7
[2021-01-26 01:16] VITALS: PULSE 104; RESP 18; O2SAT 99
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
[2021-01-26] MEDS: HYDROcodone-acetaminophen 5-325 mg Tablet 1 TAB PO (01:26)
[2021-01-26] MEDS: clindamycin 150 mg Capsule 300 MG PO (01:26)
[2021-01-26] MEDS: lidocaine 1% INJ 20 mL 5 ML INTRADERMA (01:26)
[2021-01-26 01:54] VITALS: BP 124/80; PULSE 70; RESP 18; O2SAT 99
== END 2021-01-26 01:45 | disposition home or self-care (01) ==
PROVIDERS: Emergency Provider Nurse Practitioner Family
DX: S81.851A Open bite, right lower leg, initial encounter (principal); W54.0XXA Bitten by dog, initial encounter; F17.210 Nicotine dependence, cigarettes, uncomplicated
CPT/HCPCS: 12002; 96372; 99283

== ENCOUNTER → 2021-02-15 13:16 | Outpatient (BNVA) | payer MEDICAID, SELFPAY | PROVIDERS: Visit Provider Nurse Practitioner | DX: Z20.822 Contact with and (suspected) exposure to COVID-19 (principal) | CPT/HCPCS: 87635 ==

== ENCOUNTER → 2021-02-16 15:23 | Outpatient (BNVA) | payer MEDICAID, SELFPAY | PROVIDERS: Visit Provider Nurse Practitioner Family | DX: N30.01 Acute cystitis with hematuria (principal) | CPT/HCPCS: 81000; 87086 ==

== ENCOUNTER 2021-06-10 20:57 | Emergency (ER) | payer MEDICAID, SELFPAY ==
[2021-06-10 21:02] VITALS: BP 114/79; PULSE 91; RESP 18; TEMP 36.9; O2SAT 100; BMI 24.7
--- NOTE | 2021-06-10 21:43 | ED_ITS ---
HPI - General Adult General: Chief complaint: General Medical Stated complaint: wants detox Time Seen by Provider: 06/10/21 21:43 History of Present Illness: HPI narrative: 26-year-old female comes in today for referral from [facility] to be initiated on medical assisted therapy for substance abuse disorder. Patient has been at the facility since the beginning of the week and has started having some difficulty starting today. Staff referred her to the ER for treatment. Patient appears well. Patient appears in no acute distress. Patient does report irritability. Patient denies any suicidal homicidal thought. Review of Systems General: Reports: 10 or more systems reviewed and unremarkable except in HPI and below Psych: Reports: other (Substance abuse disorder.) [facility] ED PFS: Medical History (Updated 06/10/21 @ 21:55 by RENATO Patterson) History of substance abuse Family History Denies family history of Diabetes CAD (coronary artery disease) Clotting disorder Dementia Hyperlipidemia Psychiatric illness Chronic kidney disease (CKD) Suicide Anesthesia complication Bleeding disorder Family history of premature coronary artery disease Lung disease Cancer Hypertension Stroke Social History Smoking and tobacco status: current every day smoker Physical Exam Const: COMMON NORMALS: no acute distress and patient oriented x3 GENERAL APPEARANCE: cooperative HENMT: COMMON NORMALS: normocephalic and Normal external nose present HEAD & SCALP: normal to inspection and normocephalic NOSE: Normal external nose present MOUTH: Normal oral and palatal mucosa present Eye: GENERAL EYE: appearance normal, both eyes and all related structures Neck/C-Spine: COMMON NORMALS: full ROM Chest: COMMONS NORMALS: normal inspection of the chest Resp: COMMON NORMALS: normal respiratory effort EFFORT & INSPECTION: Yes able to speak in complete sentences Cardio: COMMON NORMALS: regular rate and regular rhythm RATE: regular rate RHYTHM: regular rhythm GI: COMMON NORMALS: non-tender Back/Pelvis: COMMON NORMALS: thoracic and lumbar spine normal to inspection Extremity: COMMON NORMALS: normal to inspection Neuro: COMMON NORMALS: patient oriented x3 and moves all extremities Psych: COMMON NORMALS: mental status grossly normal and cooperative Skin: COMMON NORMALS: no rashes or lesions noted GENERAL SKIN EXAM: no rashes or lesions noted Course Vital Signs: Vital signs: Vital Signs Temperature 98.5 F 06/10/21 21:02 Pulse Rate 91 06/10/21 21:02 Respiratory Rate 18 06/10/21 21:02 Blood Pressure 114/79 06/10/21 21:02 Pulse Oximetry 100 06/10/21 21:02 MDM - General Adult MDM Narrative: Medical decision making narrative: 26-year-old female comes in today for assistance with medical collector therapy for opiate abuse. On exam respirations are even lungs are clear to auscultation. Patient appears well. Vital signs are normal. Differential diagnosis includes substance use disorder, depression, anxiety. Discussed with patient we do not have the ability to write for Suboxone at this time. I have given patient a dose of Suboxone and recommended that we have case management assist her with follow-up with a prescriber for the medication. Patient states that on Sunday they are supposed to get her into someone that can write for the medicine she is just looking for treatment until that time. Patient was given 1 dose of Suboxone to assist with her plan. Discharge Plan Discharge Patient Disposition: Home Clinical Impression: Substance use disorder Condition: Stable Prescriptions: No Action ciprofloxacin HCl [Cipro] 500 mg tablet 500 mg PO BID 7 Days Qty: 14 RF: 0 Discharge Orders: Discharge ED (Routine); Ordered 06/10/21 Ordered By: Roberth Robertson Discharge Diet: Usual diet Discharge Activity: Increase activity as tolerated Patient Instructions: Opioid Safety Activity Restrictions/Additional Instructions: Healthy diet and exercise. Drink plenty of water with medications. Follow-up with primary care as needed. Return to the ER for new concerns. Coding Level of Care Code ED Supervisor Drawing for Arlette Mcdaniels
[2021-06-10] MEDS: buprenorphine-naloxone 4-1 mg Film 1 EACH SUBLINGUAL (22:26)
[2021-06-10 22:30] VITALS: BP 106/74; PULSE 68; RESP 20; TEMP 36.6; O2SAT 100
== END 2021-06-10 22:36 | disposition home or self-care (01) ==
PROVIDERS: Emergency Provider Nurse Practitioner Family
DX: F11.10 Opioid abuse, uncomplicated (principal); F17.200 Nicotine dependence, unspecified, uncomplicated
CPT/HCPCS: 99283; J0573

== ENCOUNTER 2021-07-07 17:28 | Emergency (ER) | payer MEDICAID, SELFPAY ==
[2021-07-07 17:45] VITALS: BP 115/74; PULSE 117; RESP 16; TEMP 38.6; O2SAT 96; BMI 24.7
[2021-07-07 20:18] LABS: SARS Covid-2 Antigen Negative (Negative)
== END 2021-07-07 20:26 | disposition left against medical advice (07) ==
PROVIDERS: Emergency Medicine; Emergency Provider Family Medicine
DX: Z53.21 Procedure and treatment not carried out due to patient leaving prior to being seen by health care provider (principal)
CPT/HCPCS: 87426

== ENCOUNTER → 2021-08-16 13:08 | Outpatient (BNVA) | payer MEDICAID, SELFPAY | PROVIDERS: Visit Provider Registered Nurse Neonatal Intensive Care | DX: M79.672 Pain in left foot (principal) | CPT/HCPCS: 73630 ==

== ENCOUNTER 2021-12-12 13:34 | Emergency (ER) | payer MEDICAID, SELFPAY ==
[2021-12-12 13:49] VITALS: BP 112/78; PULSE 64; RESP 18; TEMP 36.7; O2SAT 97; BMI 25.6
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
[2021-12-12 16:50] VITALS: BP 112/78; PULSE 64; RESP 16; TEMP 36.7; O2SAT 97
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
== END 2021-12-12 17:15 | disposition home or self-care (01) ==
PROVIDERS: Emergency Provider Physician Assistant
DX: S90.111A Contusion of right great toe without damage to nail, initial encounter (principal); F17.210 Nicotine dependence, cigarettes, uncomplicated; V89.2XXA Person injured in unspecified motor-vehicle accident, traffic, initial encounter
CPT/HCPCS: 73630; 99282

== ENCOUNTER 2022-09-21 17:54 | Emergency (ER) | payer MEDICAID, SELFPAY ==
[2022-09-21 18:01] VITALS: BP 104/69; PULSE 78; RESP 18; TEMP 36.9; O2SAT 98
--- NOTE | 2022-09-21 18:17 | ED_ITS ---
HPI - Ear Problem General: Chief complaint: Ear Stated complaint: Ear infection with blood Time Seen by Provider: 09/21/22 18:04 Source: patient Mode of arrival: ambulatory History of Present Illness: 27-year-old female presents emergency room with complaints of right ear pain and drainage. She has noticed some bloody drainage. Low-grade fever or other upper respiratory symptoms including cough and congestion. No vomiting no diarrhea. MD Complaint: ear pain and ear discharge Location: right ear Duration: constant Severity: moderate Relieving factors: nothing Exacerbating factors: nothing Context: recent illness Discharge from ear: yes - bloody and yes - purulent Associated symptoms: Reports ear or mastoid pain and rhinorrhea; Denies external ear pain, fever(s), headache(s), hearing loss, neck pain or tinnitus Treatment prior to arrival: none Review of Systems Const: Denies: fever(s), chills, fatigue or malaise ENMT: Reports: ear or mastoid pain; Denies: tinnitus Card: Denies: chest pain, edema, dyspnea on exertion or orthopnea Resp: Denies: dyspnea, productive cough or non-productive cough GI: Denies: abdominal pain, nausea, vomiting, hematemesis, coffee ground emesis, diarrhea, constipation, bloating, hematochezia or melena : Denies: flank pain, difficulty voiding, dysuria, urinary frequency or urin sarah urgency Musc: Denies: neck pain Skin/Breast: Denies: rash or pruritus Neuro: Denies: headache(s) PFSH ED PFSH: Medical History History of substance abuse Hydradenitis Family History Denies family history of Diabetes CAD (coronary artery disease) Clotting disorder Dementia Hyperlipidemia Psychiatric illness Chronic kidney disease (CKD) Suicide Anesthesia complication Bleeding disorder Family history of premature coronary artery disease Lung disease Cancer Hypertension Stroke Social History Smoking and tobacco status: current every day smoker Female Reproductive History: Date of last menstrual period: 06/06/21 Physical Exam Const: COMMON NORMALS: no acute distress GENERAL APPEARANCE: cooperative and comfortable ORIENTATION/CONSCIOUSNESS: Yes awake, Yes oriented to person, Yes oriented to place and Yes oriented to time HENMT: COMMON NORMALS: normocephalic, atraumatic, hearing grossly normal bilaterally, EAC's normal, Normal nasal mucous membranes and turbinates present, moist oral mucous membranes and oropharynx normal HEAD & SCALP: normocephalic and atraumatic NOSE: Normal nasal mucous membranes and turbinates present EXTERNAL AUDITORY CANAL: EAC's normal TYMPANIC MEMBRANE: TM normal on the left and TM abnormal TM laterality: right Details: bulging, bullous, erythematous, fluid behind TM and loss of landmarks Eye: COMMON NORMALS: Equal, round and reactive pupils present, EOMs intact bilaterally, conjunctivae normal and no scleral icterus CONJUNCTIVA: Yes conjunctivae normal PUPIL: Yes Equal, round and reactive pupils present Neck/C-Spine: COMMON NORMALS: full ROM, no lymphadenopathy, supple and no JVD Lymph: LYMPHATIC: no lymphadenopathy noted and no lymphedema noted Resp: COMMON NORMALS: normal respiratory effort, No retractions, No use of accessory muscles and clear to auscultation bilaterally AUSCULTATION: clear to auscultation bilaterally Cardio: COMMON NORMALS: no JVD, regular rate, regular rhythm and No murmurs present (Cardio) RATE: regular rate RHYTHM: regular rhythm Extremity: COMMON NORMALS: normal to inspection, capillary refill normal, no clubbing, cyanosis or edema, no calf tenderness and no pedal edema Neuro: SENSORIUM/ORIENTATION: Yes oriented to person, Yes oriented to place and Yes oriented to time Skin: COMMON NORMALS: no rashes or lesions noted GENERAL SKIN EXAM: no rashes or lesions noted Course Vital Signs: Vital signs: Vital Signs Temperature 98.5 F 09/21/22 18:01 Pulse Rate 78 09/21/22 18:01 Respiratory Rate 18 09/21/22 18:01 Blood Pressure 104/69 09/21/22 18:01 Pulse Oximetry 98 09/21/22 18:01 Oxygen Delivery Me thod 09/21/22 18:01 MDM - Ear Medical Decision Making Bilateral otitis media right much worse than the last. Start Augmentin 875 twice daily for 10 days Tylenol ibuprofen as needed for pain follow-up with primary care if not improving Medical Records I reviewed the patient's medical records. Lab Data I reviewed the patient's lab results. Discharge Plan Discharge Patient Disposition: Home Clinical Impression: Otitis media of both ears Condition: Stable Prescriptions: New Augmentin XR 1,000-62.5 mg tablet extended release 12 hr 1 tab PO BID 10 Days Qty: 20 0RF Discontinued doxycycline hyclate 100 mg capsule 100 mg PO BID 7 Days Qty: 14 0RF No Action mupirocin 2 % ointment 1 applic topical BID 14 Days Qty: 22 0RF Discharge Orders: Discharge ED (Routine); Ordered 09/21/22 Ordered By: Gustavo Orona Discharge Diet: Usual diet Discharge Activity: Increase activity as tolerated Patient Instructions: Otitis Media - Adult, Opioid Safety, Pain Management Activity Restrictions/Additional Instructions: You are seen today for right ear pain. You are found to have bilateral ear infections. 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
== END 2022-09-21 18:20 | disposition home or self-care (01) ==
PROVIDERS: Emergency Provider Family Medicine
DX: H66.93 Otitis media, unspecified, bilateral (principal); F17.200 Nicotine dependence, unspecified, uncomplicated
CPT/HCPCS: 99283

== ENCOUNTER 2022-12-26 08:01 | Outpatient (CLI) | payer MEDICAID, SELFPAY ==
--- NOTE | 2022-12-26 | US_ITS ---
WS: [id number] OBSTETRICAL ULTRASOUND COMPLETE HISTORY: DATING COMPARISON: None available. Single intrauterine gestation in Cephalic presentation. Cervix is Closed and normal length. Cervical length is 4.2 cm. Normal amount of amniotic fluid surrounds the fetus. Placenta: Anterior, no previa or abruption. Placenta grade 1 Heart: 138 BPM. Four chambers are identified. RIGHT and LEFT outflow tracts are unremarkable. Anatomy: Intracranial structures and spine are normal. kidneys, stomach and urinary bladd er are unremarkable. Abdominal wall, three-vessel cord and cord insertion site are normal. 4 extremities are present. profile: Poorly visualized. Gender: Female. measurements: BPD = 4.2 cm = 18w5d; HC = 16.3 cm = 19w0d; AC = 13.4 cm = 18w6d; FL = 2.9 cm = 18w5d; EFW: 260 g. Not available. Biometry is internally concordant. AGA by ultrasound: 18w6d IVAN by ultrasound: 05/23/2023 US/US OB >= 14 weeks fetus [id number] IMPRESSION: 1. Single intrauterine gestation of 18w6d with an IVAN of 05/23/2023. 2. Poorly visualized profile. Otherwise anatomy is negative.
== END 2022-12-26 08:02 | disposition home or self-care (01) ==
LOC: RAD 08:05
PROVIDERS: PCP Family Medicine; Visit Provider Family Medicine
DX: Z36.87 Encounter for antenatal screening for uncertain dates (principal)
CPT/HCPCS: 76805

== ENCOUNTER 2023-05-18 14:07 | Inpatient (IN) | payer MEDICAID, SELFPAY ==
[2023-05-18] VITALS (104 sets, daily range): BP systolic 98–134; BP diastolic 57–78; PULSE 55–90; RESP 17–18; TEMP 36.8; O2SAT 90–100
[2023-05-18] MEDS: metoclopramide 5 mg/mL SDV 2 mL 10 MG IVP (14:43)
[2023-05-18] MEDS: citric acid-sodium citrate 30 mL UDC PO (14:43)
[2023-05-18 14:58] LABS: Basophils % 0.2 %; Eosinophils # 0.1 10^3/uL (0.0-0.8); Eosinophils % 0.5 %; Hematocrit 35.1 % (37.0-47.0); Lymphocytes # 3.5 10^3/uL (0.8-4.8); Lymphocytes % 23.2 %; Mean Corpuscular HGB Conc 31.3 g/dL (30.0-36.0); Mean Corpuscular Hemoglobin 27.4 pg (28.0-34.0); Mean Corpuscular Volume 87.3 fl (81-99); Mean Platelet Volume 11.9 fL (7.4-10.4); Monocytes # 0.8 10^3/uL (0.2-0.9); Monocytes % 5.3 %; Neutrophils # 10.43 10^3/uL (1.8-7.7); Neutrophils % 70.1 %; Nucleated Red Blood Cells % 0.2 %; Platelet Count 174 10^3/cmm (130-400); Red Blood Count 4.02 10^6/uL (4.1-5.3); Red Cell Distribution Width 15.2 % (12.1-15.1); White Blood Count 14.9 10^3/uL (4.0-10.0)
--- NOTE | 2023-05-18 15:59 | P.ANESASSM_ITS ---
Pre-Anesthetic Assessment Height/Weight: Height 1.57 m Weight 77.111 kg O2 Del Method Room Air 05/18/23 14:08 C/S Familial anesthetic complications: none Was Beta Graeme taken within 24 hours: N/A Was Clonidine taken within 24 hours: N/A Social Tobacco and No alcohol h/o substance abuse Exam alert, oriented x 3, clear to auscultation bilaterally and regular rate & rhythm Airway Submandibular: within normal limits Cervical ROM: within normal limits Mallampati: Class II Dentition: chipped Pulmonary Chronic Obstructive Pulmonary Disease Anesthetic Plan ASA status: 2E Anesthesia: General (RSI) Medications/Allergies Home Medications Medication Instructions Recorded Confirmed Last Taken Type acyclovir 200 mg capsule 200 mg 05/18/23 Unknown History methadone 40 mg soluble tablet 40 mg PO DAILY 05/18/23 05/18/23 Unknown History Allergies Allergy/AdvReac Type Severity Reaction Status Date / Time Sulfa (Sulfonamide Allergy ALGY-Rash Verified 03/07/23 11:17 Antibiotics) [facility] Anesthesia Medical History History of substance abuse Hydradenitis Family History Denies family history of Diabetes CAD (coronary artery disease) Clotting disorder Dementia Hyperlipidemia Psychiatric illness Chronic kidney disease (CKD) Suicide Anesthesia complication Bleeding disorder Family history of premature coronary artery disease Lung disease Cancer Hypertension Stroke Social History Smoking and tobacco status: current every day smoker Substance/Drug Use: current Female Reproductive History : 2 Data Anesthesia 05/18/23 14:36 Short CBC 05/18/23 Range/Units 14:36 WBC 14.9 H (4.0-10.0) 10^3/uL Hgb 11.0 L (11.5-15.3) g/dL Hct 35.1 L (37.0-47.0) % MCV 87.3 (81-99) fl Plt Count 174 (130-400) 10^3/cmm Neut % (Auto) 70.1 % Neut # (Auto) 10.43 H (1.8-7.7) 10^3/uL Cardiac Studies: No Data to Display
--- NOTE | 2023-05-18 16:35 | PM.OPHPUD ---
Labor & Delivery H&P Update Date of Procedure: May 18, 2023 Date H&P Performed: 12/28/20 Admission Diagnosis: IUP at 39 w 2d gestation Active labor GBS carrier Active genital herpes, on prophylaxis Primary indication for procedure: active genital herpes Planned procedure: primary section
--- NOTE | 2023-05-18 16:38 | PM.OP ---
Operative Report Date of procedure: May 18, 2023 Pre-op diagnosis: IUP at 39 weeks 2 days gestation Active labor Active genital herpes GBS carrier Methamphetamine use during Suboxone use during Marijuana use during Procedure done: Primary low transverse section Via Pfannenstiel skin incision Specimens removed/disposition: Vertex female infant Surgeon: Katty Webster MD Anesthesia: General Estimated blood loss (mL): 1,000 IV fluids (mL): 1,200 Urine output (mL): 200 Brief History: The patient presented to labor and delivery in active labor with advanced dilation at 5 cm. She was noted to have genital herpes symptoms of pain and birning with some questionable small lesions on her labia minora and mons. It took multiple attempts to start an IV on her. She was rather [id number] with her contractions and would not tolerate spinal anesthesia so decision was made to proceed with general anesthesia. Procedure: The patient was prepped and draped in normal sterile fashion in dorsal supine position with a leftward tilt. General anesthesia was administered and a Pfannenstiel skin incision was made and carried through to the underlying layer of fascia sharply. The fascia was grasped with Joseph clamps and the underlying rectus muscles were dissected off taking care to avoid injury to the underlying tissues. The peritoneum was entered bluntly and the incision site was manually stretched. The bladder blade was inserted and the vesicouterine peritoneum was entered sharply using the Metzenbaums. The bladder flap was created digitally and the bladder blade was reinserted. Uterine incision was made in a transverse fashion in the lower uterine segment. Amniotic rupture of membranes was performed sharply and there was a copious amount of meconium stained fluid. The was delivered in vertex presentation with bulb suction of the mouth and nares at delivery. She was coated and thick vernix that was meconium stained. The cord was clamped and cut and the infant was handed to the waiting pediatric nurse. The placenta was manually extracted. The uterus was then exteriorized from the abdomen and a dry sponge was used to clear the uterus of clots and debris. The lower uterine segment was meconium stained. The uterine incision was repaired using 0 chromic in a running locked fashion. A second layer of the same suture was used in an imbricating manner. Hemostasis was obtained. The uterus was returned to the abdomen. Irrigation was used to clear the gutters of clots and debris. The uterine incision was then then reinspected for hemostasis. The peritoneum was then reapproximated using 4-0 Vicryl. The rectus muscles were gently reapproximated with 1 loose [id number] suture of 4-0 Vicryl. The subfascial tissue was inspected for hemostasis and the fascia was then reapproximated using 0 Vicryl in a running fashion. The subcutaneous tissue was irrigated and any small bleeders were coagulated using the Bovie. The subcutaneous tissue was then reapproximated using 4-0 Vicryl in a running fashion. The skin was then reapproximated using 4-0 Vicryl in a running fashion on a Matt needle. Steri-Strips and a pressure bandage were applied. Patient was awakened in the OR and went to recovery in good condition. Sponge instrument and needle counts were correct.
--- NOTE | 2023-05-18 17:29 | ANE.PACU2 ---
Inpatient post-anesthesia follow up: Airway intact: Yes Vital signs: Temperature Pulse Rate 56 Respiratory Rate Blood Pressure 134/70 Pulse Oximetry 99 Oxygen Delivery Me thod Room Air Oxygen Flow Rate Fraction of Inspir ed Oxygen Hydration adequate: Yes Nausea and vomiting: No Pain level: 2 Mental status: Baseline
[2023-05-18] MEDS: HYDROcodone-acetaminophen 5-325 mg Tablet PO (18:00)
[2023-05-18] MEDS: docusate sodium 100 mg Capsule PO (18:00)
[2023-05-18 18:17] LABS: Amphetamines Screen Urine Negative (Negative); Barbiturates Screen Urine Negative (Negative); Benzodiazepines Screen Urine Negative (Negative); Cocaine Screen Urine Negative (Negative); Opiate Screen Urine Negative (Negative); PCP Screen Urine Negative (Negative); THC Screen Urine Negative (Negative)
[2023-05-18 18:45] LABS: Bilirubin Urine Neg (Negative); Blood Urine Neg (Negative); Glucose Urine UA Norm (Normal); Ketones Urine Negative (Negative); Leukocyte Esterase Urine Trace (Negative); Nitrate Urine Negative (Negative); Protein Urine Neg (Negative); Urine Appearance Clear (CLEAR); Urine Color Yellow (Yellow); Urobilinogen Urine Norm (Negative); pH Urine 5 (5-7)
[2023-05-18 18:46] LABS: Bacteria Urine TRACE /hpf; Mucus Urine TRACE /hpf; Squamous Epithelial Cell Urine 0-4 /hpf (0-5); WBC Urine 0-4 /hpf (0-5)
[2023-05-18] MEDS: ketorolac 30 mg/mL INJ IVP (23:10)
[2023-05-19] MEDS: HYDROcodone-acetaminophen 5-325 mg Tablet PO ×4 (00:10→19:33)
[2023-05-19] MEDS: ketorolac 30 mg/mL INJ IVP (05:34)
[2023-05-19 05:35] VITALS: BP 99/63; PULSE 73
[2023-05-19 06:51] LABS: Hematocrit 28.9 % (37.0-47.0); Hemoglobin 9.1 g/dL (11.5-15.3); Mean Corpuscular HGB Conc 31.5 g/dL (30.0-36.0); Mean Corpuscular Hemoglobin 27.5 pg (28.0-34.0); Mean Corpuscular Volume 87.3 fl (81-99); Mean Platelet Volume 12.3 fL (7.4-10.4); Platelet Count 165 10^3/cmm (130-400); Red Blood Count 3.31 10^6/uL (4.1-5.3); Red Cell Distribution Width 15.4 % (12.1-15.1)
[2023-05-19 07:53] VITALS: BP 107/76; PULSE 57
[2023-05-19] MEDS: prenatal vitamin Capsule 1 CAP PO (08:06)
[2023-05-19] MEDS: ibuprofen 800 mg tablet PO (08:07)
[2023-05-19] MEDS: ferrous sulfate EC 325 mg Tablet PO (08:07)
[2023-05-19] MEDS: docusate sodium 100 mg Capsule PO (08:07)
[2023-05-19] MEDS: methadone 10 mg Tablet 85 MG PO (09:40)
--- NOTE | 2023-05-19 11:55 | PM.PN ---
Subjective Subjective: Postop day 1 doing well. She has passed flatus. Pain is controlled with medication. Vitals/I&O/Wt Last Vital Signs Temp 98.2 F 05/18/23 16:30 Pulse 57 L 05/19/23 07:53 Resp 17 05/18/23 16:25 BP 107/76 05/19/23 07:53 Pulse Ox 96 05/18/23 23:10 O2 Del Method Room Air 05/18/23 16:40 05/18/23 05/19/23 05/19/23 22:59 06:59 14:59 Intake Total 50 / 50 Output Total 1050 / 1050 1050 / 2100 Balance -1000 / -1000 -1050 / -0 Weight last 48 hrs Weight 77.111 kg Physical Exam Narrative: Alert and oriented but somewhat drowsy appearing, sitting on the edge of the bed, heart regular rate and rhythm, lungs clear to auscultation bilaterally abdomen is soft with appropriate postoperative tenderness, positive bowel sounds in all 4 quadrants, incision is clean dry and intact with Steri-Strips in place, fundus is firm and U -2, extremities have slight edema but no calf tenderness. Urinary Catheter Management: [place]: Cath Placed During This Visit: yes, but has since been removed by the nurse Reason for Continuing Indwelling Catheter: Decision to DC Catheter Urinary Catheter Date of Insertion: 05/18/23 Urinary Catheter Time of Insertion: 15:01 Date Urinary Catheter Removed: 05/19/23 Time Urinary Catheter Discontinued: 06:14 Data 05/19/23 06:40 A&P Assessment and plan (1) delivery due to maternal disorder: Postop day 0-1 primary section for active genital herpes. routine and postoperative care. (2) Drug use complicating the puerperium: Suboxone, methamphetamine, THC (3) Hepatitis C antibody test positive: (4) Insufficient care: Attestations Medical Necessity Statement*: Routine postoperative and care Coding Level of Care Code Acute Code for Chg Fwd Diagnoses delivery due to maternal disorder O99.892 Drug use complicating the puerperium O99.325 Hepatitis C antibody test positive R76.8 Insufficient care O09.30
--- NOTE | 2023-05-19 21:07 | PC.NURSE ---
0800 abd dressing removed, steri strips intact and incisoin clean and dry
[2023-05-19 22:11] VITALS: BP 101/57; PULSE 71; RESP 16; TEMP 36.6
[2023-05-20] MEDS: ibuprofen 800 mg tablet PO ×4 (00:40→21:34)
[2023-05-20 04:40] VITALS: BP 113/78; PULSE 68; RESP 18; TEMP 36.8; O2SAT 96
[2023-05-20] MEDS: methadone 10 mg Tablet 85 MG PO (08:54)
[2023-05-20] MEDS: prenatal vitamin Capsule 1 CAP PO (08:54)
[2023-05-20] MEDS: docusate sodium 100 mg Capsule PO ×2 (08:54→19:09)
[2023-05-20 15:50] VITALS: BP 100/55; PULSE 60
[2023-05-20 15:51] VITALS: RESP 16; TEMP 36.8
--- NOTE | 2023-05-20 16:45 | PM.OBGYDC ---
Discharge Providers CUSTOMER ORDER CLERK Date of Admission: 05/18/23 14:07 Date of Discharge: 05/20/23 Attending Provider at Admission: Katty Webster MD Attending Provider at Discharge: Katty Webster MD Primary Care Provider: Katty Webster MD Diagnoses at Discharge Discharge Diagnosis (1) delivery due to maternal disorder: Details from hospital stay: Active herpes genitalis Status: Acute (2) Drug use complicating the puerperium: Details from hospital stay: Maternal suboxone use, also +meth during and + THC. DFS notified. Status: Acute (3) Hepatitis C antibody test positive: Status: Acute (4) Insufficient care: Status: Acute Reason for Visit Reason for Visit: Contractions Information Peripartum Data: Delivery Method: Physical Exam Urinary Catheter Management: [place]: Cath Placed During This Visit: yes, but has since been removed by the nurse Reason for Continuing Indwelling Catheter: Decision to DC Catheter Urinary Catheter Date of Insertion: 05/18/23 Urinary Catheter Time of Insertion: 15:01 Date Urinary Catheter Removed: 05/19/23 Time Urinary Catheter Discontinued: 06:14 Discharge Data Studies Completed and Pending Laboratory Results WBC 18.0 10^3/uL (4.0-10.0) H 05/19/23 06:40 RBC 3.31 10^6/uL (4.1-5.3) L 05/19/23 06:40 Hgb 9.1 g/dL (11.5-15.3) L 05/19/23 06:40 Hct 28.9 % (37.0-47.0) L 05/19/23 06:40 MCV 87.3 fl (81-99) 05/19/23 06:40 MCH 27.5 pg (28.0-34.0) L 05/19/23 06:40 MCHC 31.5 g/dL (30.0-36.0) 05/19/23 06:40 RDW 15.4 % (12.1-15.1) H 05/19/23 06:40 Plt Count 165 10^3/cmm (130-400) 05/19/23 06:40 MPV 12.3 fL (7.4-10.4) H 05/19/23 06:40 Neut % (Auto) 70.1 % 05/18/23 14:36 Lymph % (Auto) 23.2 % 05/18/23 14:36 [place] % (Auto) 5.3 % 05/18/23 14:36 Eos % (Auto) 0.5 % 05/18/23 14:36 Baso % (Auto) 0.2 % 05/18/23 14:36 Neut # (Auto) 10.43 10^3/uL (1.8-7.7) H 05/18/23 14:36 Lymph # (Auto) 3.5 10^3/uL (0.8-4.8) 05/18/23 14:36 [place] # (Auto) 0.8 10^3/uL (0.2-0.9) 05/18/23 14:36 Eos # (Auto) 0.1 10^3/uL (0.0-0.8) 05/18/23 14:36 Baso # (Auto) 0.0 10^3/uL (0.0-0.1) 05/18/23 14:36 Nucleated RBC % (auto) 0.2 % 05/18/23 14:36 Nucleated RBCs # 0.0 /100WBC 05/18/23 14:36 Urine Color Yellow (Yellow) 05/18/23 15:06 Urine Appearance Clear (CLEAR) 05/18/23 15:06 Urine pH 5 (5-7) 05/18/23 15:06 Ur Specific [place] 1.020 (1.005-1.030) 05/18/23 15:06 Urine Protein Neg (Negative) 05/18/23 15:06 Urine Glucose (UA) Norm (Normal) 05/18/23 15:06 Urine Ketones Negative (Negative) 05/18/23 15:06 Urine Blood Neg (Negative) 05/18/23 15:06 Urine Nitrate Negative (Negative) 05/18/23 15:06 Urine Bilirubin Neg (Negative) 05/18/23 15:06 Urine Urobilinogen Norm mg/dL (Negative) 05/18/23 15:06 Ur Leukocyte Esterase Trace (Negative) H 05/18/23 15:06 Urine RBC None /hpf (0-2) 05/18/23 15:06 Urine WBC 0-4 /hpf (0-5) H 05/18/23 15:06 Ur Squamous Epith Cells 0-4 /hpf (0-5) H 05/18/23 15:06 Amorphous Sediment Not Reportable 05/18/23 15:06 Urine Bacteria Trace /hpf (NONE) 05/18/23 15:06 Urine Mucus Trace /hpf 05/18/23 15:06 Urine Opiates Screen Negative ng/mL (Negative) 05/18/23 15:06 Ur Barbiturates Screen Negative ng/mL (Negative) 05/18/23 15:06 Ur Phencyclidine Scrn Negative ng/mL (Negative) 05/18/23 15:06 Ur Amphetamines Screen Negative ng/mL (Negative) 05/18/23 15:06 U Benzodiazepines Scrn Negative ng/mL (Negative) 05/18/23 15:06 Urine Cocaine Screen Negative ng/mL (Negative) 05/18/23 15:06 U Marijuana (THC) Screen Negative ng/mL (Negative) 05/18/23 15:06 Vitals Last Vital Signs Temp 98.3 F 05/20/23 15:51 Pulse 60 05/20/23 15:50 Resp 16 05/20/23 15:51 BP 100/55 05/20/23 15:50 Pulse Ox 96 05/20/23 04:40 O2 Del Method Room Air 05/20/23 04:40 Discharge Plan Discharge Condition: Stable Prescriptions: No Action methadone 40 mg Tablet,Soluble 40 mg PO DAILY acyclovir 200 mg Capsule 200 mg Patient Instructions: Opioid Safety Coding Level of Care Code Acute Code for Chg Fwd Diagnoses delivery due to maternal disorder O99.892 Drug use complicating the puerperium O99.325 Hepatitis C antibody test positive R76.8 Insufficient care O09.30
--- NOTE | 2023-05-20 16:54 | P.PN_ITS ---
Subjective Subjective: She has no complaints, she said her pain is controlled, she said her bleeding is better than yesterday Vitals/I&O/Wt Last Vital Signs Temp 98.3 F 05/20/23 15:51 Pulse 60 05/20/23 15:50 Resp 16 05/20/23 15:51 BP 100/55 05/20/23 15:50 Pulse Ox 96 05/20/23 04:40 O2 Del Method Room Air 05/20/23 04:40 Physical Exam Narrative: Sitting up in bed holding , she seems rather drowsy as she easily falls as leep when I take the from her. Heart regular rate and rhythm, lungs clear to auscultation bilaterally, abdomen is soft with appropriate postoperative tenderness, incision is clean dry and intact with Steri-Strips in place, extremities have slight edema but no calf tenderness. Urinary Catheter Management: [place]: Cath Placed During This Visit: yes, but has since been removed by the nurse Reason for Continuing Indwelling Catheter: Decision to DC Catheter Urinary Catheter Date of Insertion: 05/18/23 Urinary Catheter Time of Insertion: 15:01 Date Urinary Catheter Removed: 05/19/23 Time Urinary Catheter Discontinued: 06:14 Data 05/19/23 06:40 A&P Assessment and plan (1) delivery due to maternal disorder: Routine postoperative care (2) Drug use complicating the puerperium: Mother was taking Suboxone she was also positive for methamphetamines and THC during her . DFS has been notified. The infant will be kept until at least 96 hours of life for QUITA (3) Insufficient care: (4) Hepatitis C antibody test positive: Attestations Medical Necessity Statement*: Routine postoperative care Coding Level of Care Code Acute Code for Chg Fwd Diagnoses delivery due to maternal disorder O99.892 Drug use complicating the puerperium O99.325 Insufficient care O09.30 Hepatitis C antibody test positive R76.8
[2023-05-20] MEDS: HYDROcodone-acetaminophen 5-325 mg Tablet PO (19:09)
[2023-05-20 21:37] VITALS: BP 108/66; PULSE 66
[2023-05-20 22:00] VITALS: BP 108/66; PULSE 66; RESP 16; TEMP 36.5
[2023-05-20 22:03] VITALS: BP 108/66; PULSE 66; RESP 16; TEMP 36.5
[2023-05-21 03:27] VITALS: BP 88/53; PULSE 62
[2023-05-21 03:45] VITALS: BP 88/53; PULSE 62; RESP 16; TEMP 36.6
[2023-05-21] MEDS: ibuprofen 800 mg tablet PO ×3 (08:06→20:06)
[2023-05-21] MEDS: prenatal vitamin Capsule 1 CAP PO (08:06)
[2023-05-21] MEDS: methadone 10 mg Tablet 85 MG PO (08:06)
[2023-05-21] MEDS: docusate sodium 100 mg Capsule PO ×2 (08:06→20:06)
[2023-05-21 08:59] VITALS: BP 122/80; PULSE 69
[2023-05-21] MEDS: HYDROcodone-acetaminophen 5-325 mg Tablet PO ×2 (10:03→20:06)
[2023-05-21] MEDS: lanolin oint 7 gm 1 APPLIC TOPICAL (10:06)
--- NOTE | 2023-05-21 17:43 | PM.DCS ---
Discharge Providers Date of Admission: 05/18/23 14:07 Date of Discharge: May 21, 2023 Attending Provider at Admission: Katty Webster MD Attending Provider at Discharge: Katty Webster MD Primary Care Provider: Katty Webster MD Diagnoses at Discharge Discharge Diagnosis (1) delivery due to maternal disorder: Status: Acute (2) Drug use complicating the puerperium: Status: Acute (3) Insufficient care: Status: Acute (4) Hepatitis C antibody test positive: Status: Acute Reason for Visit Reason for Visit: Contractions Hospital Course Hospital Course This is a 28-year-old G2 now P2 who was admitted in active labor with active herpes. She underwent a primary section. She has done well postoperatively. She is ambulating, tolerating a regular diet, her pain is controlled with medications. Physical Exam Narrative: Alert and oriented, sitting up in bed, heart regular rate and rhythm, lungs clear to auscultation bilaterally, abdomen is soft with appropriate postoperative tenderness, incision is clean dry and intact, Steri-Strips are in place, there is no erythema, she has trace edema but no calf tenderness. Urinary Catheter Management: [place]: Cath Placed During This Visit: yes, but has since been removed by the nurse Reason for Continuing Indwelling Catheter: Decision to DC Catheter Urinary Catheter Date of Insertion: 05/18/23 Urinary Catheter Time of Insertion: 15:01 Date Urinary Catheter Removed: 05/19/23 Time Urinary Catheter Discontinued: 06:14 Discharge Data Studies Completed and Pending Laboratory Results WBC 18.0 10^3/uL (4.0-10.0) H 05/19/23 06:40 RBC 3.31 10^6/uL (4.1-5.3) L 05/19/23 06:40 Hgb 9.1 g/dL (11.5-15.3) L 05/19/23 06:40 Hct 28.9 % (37.0-47.0) L 05/19/23 06:40 MCV 87.3 fl (81-99) 05/19/23 06:40 MCH 27.5 pg (28.0-34.0) L 05/19/23 06:40 MCHC 31.5 g/dL (30.0-36.0) 05/19/23 06:40 RDW 15.4 % (12.1-15.1) H 05/19/23 06:40 Plt Count 165 10^3/cmm (130-400) 05/19/23 06:40 MPV 12.3 fL (7.4-10.4) H 05/19/23 06:40 Neut % (Auto) 70.1 % 05/18/23 14:36 Lymph % (Auto) 23.2 % 05/18/23 14:36 [place] % (Auto) 5.3 % 05/18/23 14:36 Eos % (Auto) 0.5 % 05/18/23 14:36 Baso % (Auto) 0.2 % 05/18/23 14:36 Neut # (Auto) 10.43 10^3/uL (1.8-7.7) H 05/18/23 14:36 Lymph # (Auto) 3.5 10^3/uL (0.8-4.8) 05/18/23 14:36 [place] # (Auto) 0.8 10^3/uL (0.2-0.9) 05/18/23 14:36 Eos # (Auto) 0.1 10^3/uL (0.0-0.8) 05/18/23 14:36 Baso # (Auto) 0.0 10^3/uL (0.0-0.1) 05/18/23 14:36 Nucleated RBC % (auto) 0.2 % 05/18/23 14:36 Nucleated RBCs # 0.0 /100WBC 05/18/23 14:36 Urine Color Yellow (Yellow) 05/18/23 15:06 Urine Appearance Clear (CLEAR) 05/18/23 15:06 Urine pH 5 (5-7) 05/18/23 15:06 Ur Specific [place] 1.020 (1.005-1.030) 05/18/23 15:06 Urine Protein Neg (Negative) 05/18/23 15:06 Urine Glucose (UA) Norm (Normal) 05/18/23 15:06 Urine Ketones Negative (Negative) 05/18/23 15:06 Urine Blood Neg (Negative) 05/18/23 15:06 Urine Nitrate Negative (Negative) 05/18/23 15:06 Urine Bilirubin Neg (Negative) 05/18/23 15:06 Urine Urobilinogen Norm mg/dL (Negative) 05/18/23 15:06 Ur Leukocyte Esterase Trace (Negative) H 05/18/23 15:06 Urine RBC None /hpf (0-2) 05/18/23 15:06 Urine WBC 0-4 /hpf (0-5) H 05/18/23 15:06 Ur Squamous Epith Cells 0-4 /hpf (0-5) H 05/18/23 15:06 Amorphous Sediment Not Reportable 05/18/23 15:06 Urine Bacteria Trace /hpf (NONE) 05/18/23 15:06 Urine Mucus Trace /hpf 05/18/23 15:06 Urine Opiates Screen Negative ng/mL (Negative) 05/18/23 15:06 Ur Barbiturates Screen Negative ng/mL (Negative) 05/18/23 15:06 Ur Phencyclidine Scrn Negative ng/mL (Negative) 05/18/23 15:06 Ur Amphetamines Screen Negative ng/mL (Negative) 05/18/23 15:06 U Benzodiazepines Scrn Negative ng/mL (Negative) 05/18/23 15:06 Urine Cocaine Screen Negative ng/mL (Negative) 05/18/23 15:06 U Marijuana (THC) Screen Negative ng/mL (Negative) 05/18/23 15:06 Vitals Last Vital Signs Temp 97.8 F 05/21/23 03:45 Pulse 69 05/21/23 08:59 Resp 16 05/21/23 03:45 BP 122/80 05/21/23 08:59 Pulse Ox 96 05/20/23 04:40 O2 Del Method Room Air 05/20/23 04:40 Discharge Plan Discharge Patient Disposition: Home Condition: Stable Prescriptions: New ibuprofen 800 mg Tablet 800 mg PO TID PRN (Reason: Abdominal Discomfort) Qty: 40 0RF hydrocodone-acetaminophen 5-325 mg Tablet 1 - 2 tab PO Q6H PRN (Reason: Abdominal Pain) Qty: 12 0RF docusate sodium 100 mg Capsule 100 mg PO BID 30 Days Qty: 60 0RF ferrous sulfate 325 mg (65 mg iron) Tablet,Delayed Release (Dr/Ec) 325 mg PO 1XD 30 Days Qty: 30 0RF Continued methadone 40 mg Tablet,Soluble 40 mg PO DAILY Discontinued acyclovir 200 mg Capsule 200 mg Discharge Orders: Discharge Order (Routine); Ordered 05/21/23 Ordered By: Katty Webster Referrals: Katty Webster MD [Primary Care Provider] - 1 week Discharge Diet: Usual diet Discharge Activity: Limit activity as instructed Patient Instructions: Depression (DC), Bleeding (DC), Preeclampsia and Eclampsia After Delivery (GEN), OB - Daljit/Eleanor, OB Discharge Report, OB Food/Drug Interaction Guide, OB Care at Home, Opioid Safety Discharge Attestations Time Spent in Discharge Care*: less than 30 min Quality Metrics Clinical Quality Measures [ No reported AMI, CVA or VTE this stay] Coding Level of Care Code Acute Code for Chg Fwd Diagnoses delivery due to maternal disorder O99.892 Drug use complicating the puerperium O99.325 Insufficient care O09.30 Hepatitis C antibody test positive R76.8
[2023-05-21] MEDS: ferrous sulfate EC 325 mg Tablet PO (20:06)
[2023-05-21 20:10] VITALS: BP 103/61; PULSE 64
[2023-05-21 20:12] VITALS: BP 103/61; PULSE 64; RESP 15; TEMP 36.3; O2SAT 99
== END 2023-05-21 20:14 | disposition home or self-care (01) | DRG 787 ==
LOC: OPOB 14:07 → OBGYN 14:07
PROVIDERS: Admitting Provider Family Medicine; PCP Family Medicine; Visit Provider Family Medicine
PROC: 10D00Z1 Extraction of Products of Conception, Low, Open Approach (ICD-10-PCS; CPT 59514; principal; 2023-05-18 14:55)
DX: O98.32 Other infections with a predominantly sexual mode of transmission complicating childbirth (principal); O98.42 Viral hepatitis complicating childbirth; O99.324 Drug use complicating childbirth; A60.00 Herpesviral infection of urogenital system, unspecified; Z3A.39 39 weeks gestation of pregnancy; Z37.0 Single live birth; O99.824 Streptococcus B carrier state complicating childbirth; O99.334 Smoking (tobacco) complicating childbirth; F17.200 Nicotine dependence, unspecified, uncomplicated; F15.90 Other stimulant use, unspecified, uncomplicated; F12.90 Cannabis use, unspecified, uncomplicated; O77.0 Labor and delivery complicated by meconium in amniotic fluid; B19.20 Unspecified viral hepatitis C without hepatic coma
CPT/HCPCS: 36415; 51702; 59025; 59409; 80306; 81001; 85025; 85027; 99211; J0330; J1100; J1885; J2274; J2405; J2590; J2704; J2765; J3010; J7030

== ENCOUNTER 2023-09-13 08:08 | Day surgery (SDC) | payer MEDICAID, SELFPAY ==
--- NOTE | 2023-09-12 22:13 | W.PM.OPSFHP ---
Same Day Surgery H&P Indication for Procedure/HPI DATE OF PROCEDURE: September 12, 2023 CHIEF COMPLAINT/INDICATIONFOR SURGICAL PROCEDURE: desires permanent sterilization PREOP DIAGNOSIS: desires permanent sterilization PLANNED PROCEDURE: Operation Date: 09/13/23 09:30 Proposed Procedures p Laparoscopic bilateral partial salpingectomy 33495,Z30.2(Bilateral) - Roman Neff MD 28 y.o. A2 Wants permanent sterilization Now scheduled for laparoscopic bilateral partial salpingectomy PMHx: hepatitis C Ab + Genital herpes PSHx: x one Meds: methadone Medications/Allergies* Home Medications Medication Instructions Recorded Confirmed Type phentermine 37.5 mg tablet 37.5 mg PO DAILY 08/13/23 09/12/23 History Allergies/Adverse Reactions Allergy/AdvReac Type Severity Reaction Status Date / Time Sulfa (Sulfonamide Allergy ALGY-Rash Verified 09/12/23 12:55 Antibiotics) Pertinent History/Comorbid Conditions* Medical History (Updated 08/21/23 @ 21:04 by Roman Neff MD) History of substance abuse Hydradenitis Family History (Updated 11/03/19 @ 16:27 by Rae Lino LPN) Denies family history of Diabetes CAD (coronary artery disease) Clotting disorder Dementia Hyperlipidemia Psychiatric illness Chronic kidney disease (CKD) Suicide Anesthesia complication Bleeding disorder Family history of premature coronary artery disease Lung disease Cancer Hypertension Stroke Social History Smoking and tobacco/nicotine status: current every day tobacco/nicotine user Substance/Drug Use: current Pertinent Exam Findings alert, oriented x 3, clear to auscultation bilaterally and regular rate & rhythm Recommendations Surgery/Procedure today Other Plans: Plan laparoscopic bilateral partial salpingectomy September 13, 2023 Coding Level of Care Code Acute Code for Chg Fwd Diagnoses Time Spent (min) 20
[2023-09-13] VITALS (13 sets, daily range): BP systolic 89–122; BP diastolic 57–89; PULSE 53–88; RESP 14–21; TEMP 36.1–36.8; O2SAT 98–100; BMI 32.9
[2023-09-13 08:22] LABS: OR HCG Qualitative Urine Negative (Negative)
[2023-09-13] MEDS: scopolamine 1.5 Patch 1 PATCH TRANSDERMA (08:39)
[2023-09-13] MEDS: sodium chloride 0.9% 1,000 ML 30 ML IV (08:39)
--- NOTE | 2023-09-13 09:12 | W.PM.OPSUD ---
Surgery/Procedure H&P Update DATE OF PROCEDURE: September 13, 2023 DATE H&P PERFORMED: 09/13/23 H&P UPDATE INFORMATION: I have reviewed H&P completed within last 30 days, I have examined patient prior to procedure and No changes to prior documentation PREOP DIAGNOSIS: desires permanent sterilization PLANNED PROCEDURE: Operation Date: 09/13/23 09:30 Proposed Procedures p Laparoscopic bilateral partial salpingectomy 54829,Z30.2(Bilateral) - Roman Neff MD
--- NOTE | 2023-09-13 11:35 | W.PM.OPSUD ---
Surgery/Procedure H&P Update DATE OF PROCEDURE: September 13, 2023 DATE H&P PERFORMED: 09/13/23 H&P UPDATE INFORMATION: I have reviewed H&P completed within last 30 days, I have examined patient prior to procedure and No changes to prior documentation PREOP DIAGNOSIS: desires permanent sterilization PLANNED PROCEDURE: Operation Date: 09/13/23 09:30 Proposed Procedures p Laparoscopic bilateral partial salpingectomy 46175,Z30.2(Bilateral) - Roman Neff MD
--- NOTE | 2023-09-13 13:35 | P.OP_ITS ---
Operative Report Date of procedure: September 13, 2023 Pre-op diagnosis: desires permanent sterilization? Post-op diagnosis: same Post-op findings: normal uterus, tubes, and ovaries Procedure done: laparoscopic bilateral partial salpingectomy Implants: none Specimens removed/disposition: bilateral partial fallopian tube segments Surgeon: Roman Neff MD Anesthesia: General Estimated blood loss (mL): 5 Complications: none Condition: stable Disposition: PACU Brief History: 28 y.o. desires permanent sterilization Procedure: Informed consent was obtained.? The patient was taken to the OR and placed on the table.? General endotracheal anesthesia was induced.? The patient was then placed in dorsolithotomy position.? The abdomen and perineum were then prepped and draped in the usual fashion.? A 5 mm subumbilical skin incision was made.? A 5 mm trocar with sheath was then inserted into the peritoneal cavity under direct visualization with the laparoscope.? After confirming intraperitoneal position, pneumoperitoneum was achieved.? Two separate 5 mm incisions were made in the right and left mid- quadrants.? 5 mm trocars with sheaths were then inserted into the peritoneal cavity under direct visualization with the laparoscope. The right fallopian tube was then identified to its fimbrial end.? Starting at the fimbrial end, the mesosalpinx was then coagulated and cut using the Endoseal.? A 3-4 cm portion of the right fallopian tube was excised and removed via one of the ports.? This was sent to pathology.? There was no bleeding seen. Similarly, the left fallopian tube was identified to its fimbrial end.? A 3-4 cm portion of the left fallopian tube was excised and removed, sent to pathology.? There was no bleeding. All instruments were then removed from the peritoneal cavity after the pneumoperitoneum was allowed to escape.? The skin incisions were closed using 3- O chromic in subcuticular fashion.? Dermabond was applied.? The patient was then placed supine and awakened, taken the the PACU in good condition.
--- NOTE | 2023-09-13 14:20 | ANE.PACU2 ---
Inpatient post-anesthesia follow up: Airway intact: Yes Vital signs: Temperature 97.1 F Pulse Rate 62 Respiratory Rate 18 Blood Pressure 108/76 Pulse Oximetry 100 Oxygen Delivery Me thod Room Air Oxygen Flow Rate 8 Fraction of Inspir ed Oxygen Hydration adequate: Yes Nausea and vomiting: No Pain level: 1 Mental status: Baseline
== END 2023-09-13 14:25 | disposition home or self-care (01) ==
PROVIDERS: Visit Provider Obstetrics & Gynecology
PROC: (CPT 58661; principal; 2023-09-13 09:20)
DX: Z30.2 Encounter for sterilization (principal)
CPT/HCPCS: 58661; 51702; 81025; 84703; 88302; J1100; J1200; J1885; J2250; J2405; J2704; J2710; J3010; J3490; J7030

== ENCOUNTER 2024-11-01 17:05 | Emergency (ER) | payer BC, MEDICAID, SELFPAY ==
[2024-11-01 17:12] VITALS: BP 117/68; PULSE 100; RESP 18; TEMP 37.2; O2SAT 96; BMI 35.6
--- NOTE | 2024-11-01 17:38 | W.ED.BACK ---
Documented by User: Gustavo Orona DO 11/05/24 09:20 HPI - Back Pain/Injury General: Chief Complaint: Back Pain/Injury Stated Complaint: pain in back Time Seen by Provider: 11/01/24 17:18 History of Present Illness: 29-year-old female presents emergency room reporting a fever at home of up to 104 headache and low back pain. She intermittently has had some dysuria. She believes she may have a UTI. She has had several UTIs in the past no flank pain. She has not noticed any hematuria. She has some nausea but no vomiting no diarrhea Associated symptoms: Deny abdominal pain, chills, dysuria, fever(s) or urinary urgency Related Data Home Medications Medication Instructions Recorded Confirmed lorazepam 0.5 mg tablet mg PO 03/12/24 03/16/24 zolpidem 10 mg tablet mg PO 03/12/24 03/16/24 Previous Rx's Medication Instructions Recorded cephalexin 500 mg capsule 500 mg PO QID 7 days #28 caps 03/15/24 clindamycin HCl 300 mg capsule 600 mg (2 x 300 mg) PO TID 7 days 03/16/24 #42 caps mupirocin 2 % topical ointment 1 applic topical TID #22 grams 03/16/24 cefdinir 300 mg capsule 300 mg PO BID 7 days #14 caps 11/01/24 ketorolac 10 mg tablet 10 mg PO TID PRN pain #10 tabs 11/01/24 ondansetron 4 mg disintegrating 4 mg PO Q6H PRN nausea and 11/01/24 tablet vomiting #14 tabs Allergies Allergy/AdvReac Type Severity Reaction Status Date / Time Sulfa (Sulfonamide Allergy ALGY-Rash Verified 11/01/24 17:14 Antibiotics) Review of Systems Const: Denies: fever(s) or chills Card: Denies: chest pain Resp: Denies: dyspnea GI: Denies: abdominal pain : Denies: dysuria, urinary frequency or urinary urgency Musc: Reports: back pain; Denies: neck pain Skin/Breast: Denies: rash Neuro: Reports: headache(s) PFSH ED PFSH: Medical History Hydradenitis History of substance abuse Family History Denies family history of Diabetes CAD (coronary artery disease) Clotting disorder Dementia Hyperlipidemia Psychiatric illness Chronic kidney disease (CKD) Suicide Anesthesia complication Bleeding disorder Family history of premature coronary artery disease Lung disease Cancer Hypertension Stroke Social History Smoking and tobacco/nicotine status: current every day tobacco/nicotine user Substance/Drug Use: current Female Reproductive History: Date of last menstrual period: 10/17/24 Physical Exam Const: COMMON NORMALS: no acute distress GENERAL APPEARANCE: cooperative and comfortable ORIENTATION/CONSCIOUSNESS: Yes awake, Yes oriented to person, Yes oriented to place and Yes oriented to time HENMT: COMMON NORMALS: normocephalic, atraumatic and hearing grossly normal bilaterally HEAD & SCALP: normocephalic and atraumatic Resp: COMMON NORMALS: normal respiratory effort, No retractions, No use of accessory muscles and clear to auscultation bilaterally AUSCULTATION: clear to auscultation bilaterally Cardio: COMMON NORMALS: regular rate, regular rhythm and No murmurs present (Cardio) RATE: regular rate RHYTHM: regular rhythm GI: COMMON NORMALS: Soft to palpation and No hepatosplenomegaly present AUSCULTATION: Yes normoactive bowel sounds PALPATION: Yes Soft to palpation, No Tenderness to palpation present (GI), No Guarding due to palpation present (GI) and Yes No hepatosplenomegaly present Extremity: COMMON NORMALS: normal to inspection, capillary refill normal, no clubbing, cyanosis or edema, no calf tenderness and no pedal edema Neuro: SENSORIUM/ORIENTATION: Yes oriented to person, Yes oriented to place and Yes oriented to time Skin: COMMON NORMALS: no rashes or lesions noted GENERAL SKIN EXAM: no rashes or lesions noted Course Vital Signs: Vital signs: Vital Signs Temperature 98.9 F 11/01/24 17:12 Pulse Rate 85 11/01/24 22:02 Respiratory Rate 16 11/01/24 22:02 Blood Pressure 119/69 11/01/24 22:02 Pulse Oximetry 95 11/01/24 22:02 Oxygen Delivery Me thod Room Air 11/01/24 17:12 MDM - Back Pain/Injury Medical Decision Making Care signed out to Dr. Hooker at change of shift. See final notes for diagnosis and disposition. 29-year-old female checked out to me at shift change. This young lady has had back pain and flank pain, headache and fever. She has a urinary tract infection with hematuria on laboratory testing. She has a mild leukocytosis. She is given Rocephin here. CT reveals no stone or obstruction. She will be treated for pyelonephritis. She knows to return for any worsening symptoms or continued fever despite abx. Labs 11/01/24 17:48 11/01/24 17:48 Radiology Impressions Abdomen/Pelvis CT 11/01/24 18:10 IMPRESSION: 1. Findings compatible with ascending urinary infection of the right. Consider correlation with urinalysis and urine culture. 2. Splenomegaly. Laboratory Results WBC 12.43 10^3/uL (3.29-11.43) H 11/01/24 17:48 RBC 4.19 10^6/uL (3.85-5.65) 11/01/24 17:48 Hgb 12.60 g/dL (11.27-16.99) 11/01/24 17:48 Hct 37.6 % (36-47) 11/01/24 17:48 MCV 89.7 fl (85-98) 11/01/24 17:48 MCH 30.1 pg (27-33) 11/01/24 17:48 MCHC 33.5 g/dL (30-55) 11/01/24 17:48 RDW 12.6 % (12.1-15.1) 11/01/24 17:48 Plt Count 169 10^3/cmm (157-399) 11/01/24 17:48 MPV 10.2 fL (7.4-10.4) 11/01/24 17:48 Neut % (Auto) 78.6 % 11/01/24 17:48 Lymph % (Auto) 13.0 % 11/01/24 17:48 [place] % (Auto) 7.2 % 11/01/24 17:48 Eos % (Auto) 0.4 % 11/01/24 17:48 Baso % (Auto) 0.2 % 11/01/24 17:48 Neut # (Auto) 9.78 10^3/uL (1.8-7.7) H 11/01/24 17:48 Lymph # (Auto) 1.6 10^3/uL (0.8-4.8) 11/01/24 17:48 [place] # (Auto) 0.9 10^3/uL (0.2-0.9) 11/01/24 17:48 Eos # (Auto) 0.1 10^3/uL (0.0-0.8) 11/01/24 17:48 Baso # (Auto) 0.0 10^3/uL (0.0-0.1) 11/01/24 17:48 Nucleated RBC % (auto) 0 % 11/01/24 17:48 Nucleated RBCs # 0.0 /100WBC 11/01/24 17:48 Sodium 134 mmol/L (136-145) L 11/01/24 17:48 Potassium 3.5 mmol/L (3.5-5.1) 11/01/24 17:48 Chloride 101 mmol/L (98-107) 11/01/24 17:48 Carbon Dioxide 24 mmol/L (22-29) 11/01/24 17:48 Anion Gap 12.5 (5-19) 11/01/24 17:48 BUN 9 mg/dL (6-20) 11/01/24 17:48 Creatinine 0.8 mg/dL (0.5-0.9) 11/01/24 17:48 GFR Calculation 86.0 mL/min (90-130) L 11/01/24 17:48 Glucose 113 mg/dL (65-115) 11/01/24 17:48 Calculated Osmolality 277 mOsm/kg (285-295) L 11/01/24 17:48 Calcium 8.9 mg/dL (8.5-10.5) 11/01/24 17:48 Total Bilirubin 0.6 mg/dL (0.15-1.2) 11/01/24 17:48 AST 35 U/L (0-32) H 11/01/24 17:48 ALT 65 U/L (0-33) H 11/01/24 17:48 Alkaline Phosphatase 68 U/L (35-105) 11/01/24 17:48 Total Protein 7.2 g/dL (6.6-8.7) 11/01/24 17:48 Albumin 3.6 g/dL (3.5-5.2) 11/01/24 17:48 Globulin 3.6 g/dL (1.3-4.6) 11/01/24 17:48 HCG, Qual Negative (Negative) 11/01/24 17:48 Urine Color Dark yellow (Yellow) A 11/01/24 17:23 Urine Appearance Cloudy (CLEAR) A 11/01/24 17:23 Urine pH 6.0 (5-7) 11/01/24 17:23 Ur Specific [place] 1.019 (1.005-1.030) 11/01/24 17:23 Urine Protein 2+ (Negative) A 11/01/24 17:23 Urine Glucose (UA) Negative (Normal) 11/01/24 17:23 Urine Ketones Negative (Negative) 11/01/24 17:23 Urine Blood 2+ (Negative) A 11/01/24 17:23 Urine Nitrate Positive (Negative) A 11/01/24 17:23 Urine Bilirubin 1+ (Negative) H 11/01/24 17:23 Urine Urobilinogen 1.0 mg/dL (Negative) 11/01/24 17:23 Ur Leukocyte Esterase 2+ (Negative) A 11/01/24 17:23 Urine RBC 21-50 /hpf (0-2) H 11/01/24 17:23 Urine WBC >100 /hpf (0-5) H 11/01/24 17:23 Ur Squamous Epith Cells 0-5 /hpf (0-5) 11/01/24 17:23 Amorphous Sediment Not Reportable 11/01/24 17:23 Urine Bacteria 4+ /hpf (NONE) H 11/01/24 17:23 Hyaline Casts 0.40 /lpf 11/01/24 17:23 Discharge Plan Discharge Patient Disposition: Home Clinical Impression: Pyelonephritis Condition: Stable Prescriptions: New cefdinir 300 mg capsule 300 mg PO BID 7 Days Qty: 14 0RF ketorolac 10 mg tablet 10 mg PO TID PRN (Reason: pain) Qty: 10 0RF ondansetron 4 mg tablet,disintegrating 4 mg PO Q6H PRN (Reason: nausea and vomiting) Qty: 14 0RF No Action mupirocin 2 % ointment 1 applic topical TID Qty: 22 0RF clindamycin HCl 300 mg capsule 600 mg PO TID 7 Days Qty: 42 0RF lorazepam 0.5 mg tablet PO zolpidem 10 mg tablet PO cephalexin 500 mg capsule 500 mg PO QID 7 Days Qty: 28 0RF Discharge Orders: Discharge ED (Routine); Ordered 11/01/24 Ordered By: Jake Hooker Patient Instructions: Kidney Infection (ED), Opioid Safety, Pain Management Activity Restrictions/Additional Instructions: Antibiotics as directed. Use medications for symptoms as needed. Plenty of oral liquids for the next 48 hours. Return for fever despite 2-3 more doses of antibiotics, vomiting liquids or medications, worsening pain despite treatment, other concerning symptoms. See your doctor next week. You will need a repeat urine test to make sure that your infection has cleared at some point. Coding Level of Care Code ED Global Compensation Director for [employer] Documented by User: Jake Hooker, 11/02/24 15:16 HPI - Back Pain/Injury General: Chief Complaint: Back Pain/Injury Stated Complaint: pain in back Time Seen by Provider: 11/01/24 17:18 Related Data Home Medications Medication Instructions Recorded Confirmed lorazepam 0.5 mg tablet mg PO 03/12/24 03/16/24 zolpidem 10 mg tablet mg PO 03/12/24 03/16/24 Previous Rx's Medication Instructions Recorded cephalexin 500 mg capsule 500 mg PO QID 7 days #28 caps 03/15/24 clindamycin HCl 300 mg capsule 600 mg (2 x 300 mg) PO TID 7 days 03/16/24 #42 caps mupirocin 2 % topical ointment 1 applic topical TID #22 grams 03/16/24 cefdinir 300 mg capsule 300 mg PO BID 7 days #14 caps 11/01/24 ketorolac 10 mg tablet 10 mg PO TID PRN pain #10 tabs 11/01/24 ondansetron 4 mg disintegrating 4 mg PO Q6H PRN nausea and 11/01/24 tablet vomiting #14 tabs Allergies Allergy/AdvReac Type Severity Reaction Status Date / Time Sulfa (Sulfonamide Allergy ALGY-Rash Verified 11/01/24 17:14 Antibiotics) PFSH ED PFSH: Medical History Hydradenitis History of substance abuse Family History Denies family history of Diabetes CAD (coronary artery disease) Clotting disorder Dementia Hyperlipidemia Psychiatric illness Chronic kidney disease (CKD) Suicide Anesthesia complication Bleeding disorder Family history of premature coronary artery disease Lung disease Cancer Hypertension Stroke Social History Smoking and tobacco/nicotine status: current every day tobacco/nicotine user Substance/Drug Use: current Course Vital Signs: Vital signs: Vital Signs Temperature 98.9 F 11/01/24 17:12 Pulse Rate 85 11/01/24 22:02 Respiratory Rate 16 11/01/24 22:02 Blood Pressure 119/69 11/01/24 22:02 Pulse Oximetry 95 11/01/24 22:02 Oxygen Delivery Me thod Room Air 11/01/24 17:12 MDM - Back Pain/Injury Medical Decision Making 29-year-old female checked out to me at shift change. This young lady has had back pain and flank pain, headache and fever. She has a urinary tract infection with hematuria on laboratory testing. She has a mild leukocytosis. She is given Rocephin here. CT reveals no stone or obstruction. She will be treated for pyelonephritis. She knows to return for any worsening symptoms or continued fever despite abx. Labs 11/01/24 17:48 11/01/24 17:48 Radiology Impressions Abdomen/Pelvis CT 11/01/24 18:10 IMPRESSION: 1. Findings compatible with ascending urinary infection of the right. Consider correlation with urinalysis and urine culture. 2. Splenomegaly. Laboratory Results WBC 12.43 10^3/uL (3.29-11.43) H 11/01/24 17:48 RBC 4.19 10^6/uL (3.85-5.65) 11/01/24 17:48 Hgb 12.60 g/dL (11.27-16.99) 11/01/24 17:48 Hct 37.6 % (36-47) 11/01/24 17:48 MCV 89.7 fl (85-98) 11/01/24 17:48 MCH 30.1 pg (27-33) 11/01/24 17:48 MCHC 33.5 g/dL (30-55) 11/01/24 17:48 RDW 12.6 % (12.1-15.1) 11/01/24 17:48 Plt Count 169 10^3/cmm (157-399) 11/01/24 17:48 MPV 10.2 fL (7.4-10.4) 11/01/24 17:48 Neut % (Auto) 78.6 % 11/01/24 17:48 Lymph % (Auto) 13.0 % 11/01/24 17:48 [place] % (Auto) 7.2 % 11/01/24 17:48 Eos % (Auto) 0.4 % 11/01/24 17:48 Baso % (Auto) 0.2 % 11/01/24 17:48 Neut # (Auto) 9.78 10^3/uL (1.8-7.7) H 11/01/24 17:48 Lymph # (Auto) 1.6 10^3/uL (0.8-4.8) 11/01/24 17:48 [place] # (Auto) 0.9 10^3/uL (0.2-0.9) 11/01/24 17:48 Eos # (Auto) 0.1 10^3/uL (0.0-0.8) 11/01/24 17:48 Baso # (Auto) 0.0 10^3/uL (0.0-0.1) 11/01/24 17:48 Nucleated RBC % (auto) 0 % 11/01/24 17:48 Nucleated RBCs # 0.0 /100WBC 11/01/24 17:48 Sodium 134 mmol/L (136-145) L 11/01/24 17:48 Potassium 3.5 mmol/L (3.5-5.1) 11/01/24 17:48 Chloride 101 mmol/L (98-107) 11/01/24 17:48 Carbon Dioxide 24 mmol/L (22-29) 11/01/24 17:48 Anion Gap 12.5 (5-19) 11/01/24 17:48 BUN 9 mg/dL (6-20) 11/01/24 17:48 Creatinine 0.8 mg/dL (0.5-0.9) 11/01/24 17:48 GFR Calculation 86.0 mL/min (90-130) L 11/01/24 17:48 Glucose 113 mg/dL (65-115) 11/01/24 17:48 Calculated Osmolality 277 mOsm/kg (285-295) L 11/01/24 17:48 Calcium 8.9 mg/dL (8.5-10.5) 11/01/24 17:48 Total Bilirubin 0.6 mg/dL (0.15-1.2) 11/01/24 17:48 AST 35 U/L (0-32) H 11/01/24 17:48 ALT 65 U/L (0-33) H 11/01/24 17:48 Alkaline Phosphatase 68 U/L (35-105) 11/01/24 17:48 Total Protein 7.2 g/dL (6.6-8.7) 11/01/24 17:48 Albumin 3.6 g/dL (3.5-5.2) 11/01/24 17:48 Globulin 3.6 g/dL (1.3-4.6) 11/01/24 17:48 HCG, Qual Negative (Negative) 11/01/24 17:48 Urine Color Dark yellow (Yellow) A 11/01/24 17:23 Urine Appearance Cloudy (CLEAR) A 11/01/24 17:23 Urine pH 6.0 (5-7) 11/01/24 17:23 Ur Specific [place] 1.019 (1.005-1.030) 11/01/24 17:23 Urine Protein 2+ (Negative) A 11/01/24 17:23 Urine Glucose (UA) Negative (Normal) 11/01/24 17:23 Urine Ketones Negative (Negative) 11/01/24 17:23 Urine Blood 2+ (Negative) A 11/01/24 17:23 Urine Nitrate Positive (Negative) A 11/01/24 17:23 Urine Bilirubin 1+ (Negative) H 11/01/24 17:23 Urine Urobilinogen 1.0 mg/dL (Negative) 11/01/24 17:23 Ur Leukocyte Esterase 2+ (Negative) A 11/01/24 17:23 Urine RBC 21-50 /hpf (0-2) H 11/01/24 17:23 Urine WBC >100 /hpf (0-5) H 11/01/24 17:23 Ur Squamous Epith Cells 0-5 /hpf (0-5) 11/01/24 17:23 Amorphous Sediment Not Reportable 11/01/24 17:23 Urine Bacteria 4+ /hpf (NONE) H 11/01/24 17:23 Hyaline Casts 0.40 /lpf 11/01/24 17:23 All radiology interpretation(s) finalized by discharge Discharge Plan Discharge Patient Disposition: Home Clinical Impression: Pyelonephritis Condition: Stable Prescriptions: New cefdinir 300 mg capsule 300 mg PO BID 7 Days Qty: 14 0RF ketorolac 10 mg tablet 10 mg PO TID PRN (Reason: pain) Qty: 10 0RF ondansetron 4 mg tablet,disintegrating 4 mg PO Q6H PRN (Reason: nausea and vomiting) Qty: 14 0RF No Action mupirocin 2 % ointment 1 applic topical TID Qty: 22 0RF clindamycin HCl 300 mg capsule 600 mg PO TID 7 Days Qty: 42 0RF lorazepam 0.5 mg tablet PO zolpidem 10 mg tablet PO cephalexin 500 mg capsule 500 mg PO QID 7 Days Qty: 28 0RF Discharge Orders: Discharge ED (Routine); Ordered 11/01/24 Ordered By: Jake Hooker Patient Instructions: Kidney Infection (ED), Opioid Safety, Pain Management Activity Restrictions/Additional Instructions: Antibiotics as directed. Use medications for symptoms as needed. Plenty of oral liquids for the next 48 hours. Return for fever despite 2-3 more doses of antibiotics, vomiting liquids or medications, worsening pain despite treatment, other concerning symptoms. See your doctor next week. You will need a repeat urine test to make sure that your infection has cleared at some point. Coding Level of Care Code ED Global Compensation Director for Arlette Mcdaniels
[2024-11-01 17:42] LABS: Bilirubin Urine 1+ (Negative); Blood Urine 2+ (Negative); Glucose Urine UA Negative (Normal); Ketones Urine Negative (Negative); Leukocyte Esterase Urine 2+ (Negative); Nitrate Urine Positive (Negative); Protein Urine 2+ (Negative); Specific Gravity, Urine 1.019 (1.005-1.030); Urine Appearance Cloudy (CLEAR); Urine Color Dark Yellow (Yellow)
[2024-11-01 17:45] LABS: Add Urine Microscopic? YES; Bacteria Urine 4+ /hpf; RBC Urine 21-50 /hpf (0-2); Squamous Epithelial Cell Urine 0-5 /hpf (0-5); WBC Urine >100 /hpf (0-5)
[2024-11-01 17:46] LABS: Add Urine Culture? Yes
[2024-11-01 18:08] LABS: Basophils % 0.2 %; Eosinophils # 0.1 10^3/uL (0.0-0.8); Eosinophils % 0.4 %; Hematocrit 37.6 % (36-47); Lymphocytes # 1.6 10^3/uL (0.8-4.8); Mean Corpuscular HGB Conc 33.5 g/dL (30-55); Mean Corpuscular Hemoglobin 30.1 pg (27-33); Mean Corpuscular Volume 89.7 fl (85-98); Mean Platelet Volume 10.2 fL (7.4-10.4); Monocytes # 0.9 10^3/uL (0.2-0.9); Monocytes % 7.2 %; Neutrophils # 9.78 10^3/uL (1.8-7.7); Neutrophils % 78.6 %; Nucleated Red Blood Cells % 0 %; Platelet Count 169 10^3/cmm (157-399); Red Blood Count 4.19 10^6/uL (3.85-5.65); Red Cell Distribution Width 12.6 % (12.1-15.1); White Blood Count 12.43 10^3/uL (3.29-11.43)
--- NOTE | 2024-11-01 18:10 | CTR_ITS ---
PROCEDURE INFORMATION: Exam: CT Abdomen And Pelvis Without Contrast Exam date and time: 11/01/2024 6:27 PM Age: 29 years old Clinical indication: Prior surgery; Surgery date: 6+ months; Surgery type: Csection; Patient HX: Low back pain with fever. Positive for UTI. ; Additional info: Flank pain TECHNIQUE: Imaging protocol: Computed tomography of the abdomen and pelvis without contrast. Radiation optimization: All CT scans at this facility use at least one of these dose optimization techniques: automated exposure control; mA and/or kV adjustment per patient size (includes targeted exams where dose is matched to clinical indication); or iterative reconstruction. COMPARISON: US OB >= 14 weeks fetus [id number] 12/26/2022 9:07 AM RADIATION DOSE METRICS: Total DLP (mGy-cm): 806.49 FINDINGS: Lungs: Subsegmental bibasilar atelectasis. The visualized lung bases are otherwise clear. Diaphragm: No evidence of diaphragmatic defect. Liver: Hepatic steatosis. No evidence of focal hepatic lesion. Gallbladder and biliary ducts: Gallbladder is contracted. No evidence of intra-hepatic or extra-hepatic biliary dilatation. Pancreas: Mildly atrophic. Otherwise grossly unremarkable. Spleen: Enlarged measuring approximately 14.5 cm in length. Adrenal glands: Grossly unremarkable. Kidneys and ureters: Right perinephric/peripelvic and periureteral inflammatory changes suspicious for ascending urinary infection with possible pyelonephritis, evaluation of which is limited on this noncontrast exam. No evidence of hydronephrosis or ureteral stone. Stomach and bowel: No evidence of bowel obstruction or perienteric inflammatory changes. Appendix: Normal appendix. Intraperitoneal space: No evidence of free air or fluid collection. Vasculature: No evidence of aneurysmal dilitation of abdominal aorta. Lymph nodes: No evidence of adenopathy. Urinary bladder: Grossly unremarkable. Reproductive: Grossly unremarkable. Bones/joints: No evidence of acute fracture or aggresive osseous lesion. Soft tissues: No evidence of fluid collection or hematoma in the superficial soft tissues. CT/CT kidney stone [id number] IMPRESSION: 1. Findings compatible with ascending urinary infection of the right. Consider correlation with urinalysis and urine culture. 2. Splenomegaly.
[2024-11-01 18:22] LABS: HCG, Serum Qual Negative (Negative)
[2024-11-01 18:28] LABS: Alanine Aminotransferase 65 U/L (0-33); Albumin Level 3.6 g/dL (3.5-5.2); Alkaline Phosphatase 68 U/L (35-105); Anion Gap 12.5 (5-19); Aspartate Amino Transferase 35 U/L (0-32); Blood Urea Nitrogen 9 mg/dL (6-20); Calcium 8.9 mg/dL (8.5-10.5); Carbon Dioxide 24 mmol/L (22-29); Chloride 101 mmol/L (98-107); Creatinine Clr Calc Pharmacy 109.1241; Globulin 3.6 g/dL (1.3-4.6); Glucose 113 mg/dL (65-115); Osmolality Calculated 277 mOsm/kg (285-295); Potassium 3.5 mmol/L (3.5-5.1); Sodium 134 mmol/L (136-145); Total Bilirubin 0.6 mg/dL (0.15-1.2); Total Protein 7.2 g/dL (6.6-8.7)
[2024-11-01 19:01] VITALS: RESP 18; O2SAT 98
[2024-11-01] MEDS: ondansetron 2 mg/ML SDV 2 mL 4 MG IVP (19:01)
[2024-11-01] MEDS: morphine 4 mg/mL SDV 1 mL IVP ×2 (19:01→21:33)
[2024-11-01] MEDS: ketorolac 30 mg/mL INJ IVP (19:01)
[2024-11-01] MEDS: cefTRIAXone 1,000 mg SDV 1000 MG IVP (19:01)
[2024-11-01 19:02] VITALS: BP 117/79; PULSE 82; O2SAT 99
[2024-11-01 22:02] VITALS: BP 119/69; PULSE 85; RESP 16; O2SAT 95
== END 2024-11-01 21:47 | disposition home or self-care (01) ==
PROVIDERS: Family Medicine; Emergency Provider Emergency Medicine
DX: N12 Tubulo-interstitial nephritis, not specified as acute or chronic (principal)
CPT/HCPCS: 36415; 74176; 80053; 81001; 84703; 85025; 87077; 87086; 87186; 96374; 96375; 96376; 99285; J0696; J1885; J2270; J2405

== ENCOUNTER 2025-07-09 14:54 | Emergency (ER) | payer BC, MEDICAID, SELFPAY ==
[2025-07-09 14:57] VITALS: BP 103/71; PULSE 76; RESP 17; TEMP 36.4; O2SAT 100; BMI 32.9
--- NOTE | 2025-07-09 15:12 | CTR_ITS ---
PROCEDURE INFORMATION: Exam: CT Abdomen And Pelvis With Contrast Exam date and time: 07/09/2025 5:14 PM Age: 30 years old Clinical indication: Abdominal pain; Epigastric; Prior surgery; Surgery date: 6+ months; Surgery type: Csection; Additional info: Epigastric pain TECHNIQUE: Imaging protocol: Computed tomography of the abdomen and pelvis with contrast. Radiation optimization: All CT scans at this facility use at least one of these dose optimization techniques: automated exposure control; mA and/or kV adjustment per patient size (includes targeted exams where dose is matched to clinical indication); or iterative reconstruction. Contrast material: OMNIPAQUE 350; Contrast volume: 100 ml; Contrast route: INTRAVENOUS (IV); COMPARISON: CT kidney stone [id number] 11/01/2024 6:27 PM RADIATION DOSE METRICS: Total DLP (mGy-cm): 746.73 FINDINGS: Lungs: 11 mm soft tissue density nodule is partially imaged centrally in the right lower lobe. 2.5 cm collection of small nodules in the lateral left lower lobe, with a tree-in-bud appearance. 4 mm subpleural nodule in the lingula has enlarged by 2 mm. Unchanged 2 mm subpleural nodule in the right middle lobe. Liver: Unchanged small focus of fatty infiltration in the left lobe of the liver. No liver mass. Gallbladder and biliary ducts: The gallbladder is normal. The common bile duct measures up to 7 mm in diameter, without significant intrahepatic biliary ductal dilatation. An obstructing focus is not identified in the common bile duct. Pancreas: The pancreas is normal. No mass. Spleen: Spleen is enlarged to 15 cm. Spleen density is normal. Adrenal glands: The adrenal glands are normal. Kidneys and ureters: No renal mass or hydronephrosis. Stomach and bowel: Fecal material fills the colon, which has a relatively dense appearance distally. No bowel dilatation. Numerous small bowel loops are mildly distended and fluid-filled. No perienteric inflammatory changes. Appendix: No evidence of appendicitis. Intraperitoneal space: No significant peritoneal free fluid. No free peritoneal air. Vasculature: Aortic caliber is normal. Lymph nodes: No lymph node enlargement. Urinary bladder: No focal wall thickening of the urinary bladder. Reproductive: Uterus is unremarkable. No suspicious adnexal lesion seen. Bones/joints: Unremarkable. No acute fracture. Soft tissues: Unremarkable. CT/CT abdomen pelvis w con* [id number] IMPRESSION: 1. Persistent splenomegaly. 2. Slight enlargement of the common bile duct, without intrahepatic biliary dilatation or obstructing focus identified. Finding can be further assessed for possible obstruction with serologic assessment and ultrasound. 3. Nonspecific mild distension of small bowel loops with fluid. The finding can reflect enteritis. 4. Lower lung pulmonary nodules with a 2.5 cm focus of nodules that likely reflects inflammatory small airways disease. The partially imaged 11 mm nodule in the right lower lobe should be completely imaged with unenhanced chest CT
--- OUTSIDE RECORDS SUMMARY | 2025-07-09 15:25 | XMS_ITS | Clinical Summary ---
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 Active ondansetron (ZOFRAN ODT) 4 mg Tablet, Rapid Dissolve Take 1 Tablet (4 mg) by mouth every 6 hours as needed for Nausea/Emesis . Dissolve tablet on top of tongue, then swallow with saliva. 12 Tablet 1 08/21/2020 Active Social History Tobacco Use Types Packs/Day Years Used Date Smoking Tobacco: Every Day Cigarettes Smokeless Tobacco: Never Alcohol Use Standard Drinks/Week Comments Never 0 (1 standard drink = 0.6 oz pur e alcohol) Estimated Date of Delivery Comme nts Yes 12/19/2020 Sex and Gender Information Value Date Recorded Sex Assigned at Not on file Legal Sex Female 5:19 PM CDT Gender Identity Not on file Sexual Orientation Not on file Last Filed Vital Signs Vital Sign Reading Time Taken Comments Blood Pressure 107/66 08/21/2020 8:40 PM CDT Pulse 97 08/21/2020 8:06 PM CDT Temperature 36.6 C (97.8 F) 08/21/2020 8:40 PM CDT Respiratory Rate 16 08/21/2020 8:40 PM CDT Oxygen Saturation 98% 08/21/2020 8:40 PM CDT Inhaled Oxygen Concentration - - Weight 69.4 kg (153 lb) 08/21/2020 5:29 PM CDT Height 157.5 cm (5' 2 ) 08/21/2020 5:29 PM CDT Body Mass Index 27.98 08/21/2020 5:29 PM CDT Plan of Treatment Health Maintenance Due Date Last Done Comments DTAP/TDAP/TD VACCINES (1 - Tdap) 2016 HEPATITIS B VACCINES (1 of 3 - 19+ 3-dose series) 03/2016 CERVICAL CANCER SCREENING 2018 HPV/Cotest (21-29) 2018 PAP SMEAR 2018 HPV VACCINES (1 - 3-dose SCDM series) 2024 INFLUENZA VACCINE (#1) 2025 RSV VACCINE (60+ or ) (1 - 1-dose 75+ series) 2072 Insurance
--- OUTSIDE RECORDS SUMMARY | 2025-07-09 15:25 | XMS_ITS | Clinical Summary ---
Author Organization [facility] Address [address] [place] [address] Phone Care Team Providers Care Linux Systems Analyst Name Role Phone Rose Goldstein Primary Care Provider Allergies Active Allergy Reactions Criticality Noted Date Comments Sulfa (Sulfonamide Antibiotics) Hives High 07/30 Medications methadone HCl (METHADONE, BULK, MISC) Take 65 mg by mouth daily. Active tirzepatide, weight loss, (Zepbound) 2.5 mg/0.5 mL Pen Injector Inject 0.5 mL (2.5 mg) by subcutaneous injection every 7 days. 3 mL 5 Active phentermine (ADIPEX P) 37.5 mg tabletIndicatio ns:Obesity (BMI 35.0-39.9 without comorbidity) Take 1 Tablet (37.5 mg) by mouth daily before breakfast. 30 Tablet 2 5 Active zolpidem (AMBIEN) 10 mg tabletIndicatio ns:Primary insomnia Take 1 Tablet (10 mg) by mouth nightly as needed for Insomnia. 30 Tablet 3 5 Active LORazepam (ATIVAN) 2 mg tabletIndicatio ns:Generalized anxiety disorder Take 1 Tablet (2 mg) by mouth 1 time daily as needed for Anxiety. 30 Tablet 2 5 Active Active Problems Problem Noted Date Diagnosed Date Obesity (BMI 35.0-39.9 without comorbidity) 11/29 Primary insomnia 06/18/2023 Generalized anxiety disorder 06/18/2023 PTSD (post-traumatic stress disorder) 06/18/2023 Resolved Problems Problem Noted Date Diagnosed Date Resolved Date History of substance abuse 06/18/2023 1 12/15/2022 Encounters Date Type Department Care Team Description 06/03/2025 External Device Data [facility] ABSTRACTION Provider, Abstract 06/02/2025 External Device Data [facility] ABSTRACTION Provider, Abstract 05/13/2025 External Device Data [facility]STRACTION Provider, Abstract 05/12/2025 External Device Data [facility]STRACTION Provider, Abstract 04/28/2025 External Device Data [facility] ABSTRACTION Provider, Abstract 04/22/2025 3:00 PM CDT Office Visit [facility] [address] [place] [address] Rose Goldstein DO Generalized anxiety disorder (Primary Dx); Obesity (BMI 35.0-39.9 without comorbidity); Primary insomnia from Last 3 Months Social History Tobacco Use Types Packs/Day Years Used Date Smoking Tobacco: Every Day Cigarettes Smokeless Tobacco: Never Alcohol Use Standard Drinks/Week Comments Never 0 (1 standard drink = 0.6 oz pur e alcohol) Comments No Sex and Gender Information Value Date Recorded Sex Assigned at Not on file Legal Sex Female 9:49 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 Gender Identity Not on file Sexual Orientation Not on file Last Filed Vital Signs Vital Sign Reading Time Taken Comments Blood Pressure 102/60 04/22/2025 3:11 PM CDT Pulse 87 04/22/2025 3:11 PM CDT Temperature 37.2 C (99 F) 04/22/2025 3:11 PM CDT Respiratory Rate 18 12/17/2024 3:03 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 Oxygen Saturation 97% 04/22/2025 3:11 PM CDT Inhaled Oxygen Concentration - - Weight 85.9 kg (189 lb 6 oz) 04/22/2025 3:11 PM CDT Height 157.5 cm (5' 2 ) 04/22/2025 3:11 PM CDT s tated Body Mass Index 34.64 04/22/2025 3:11 PM CDT Plan of Treatment Health Maintenance Due Date Last Done Comments DTAP/TDAP/TD VACCINES (1 - Tdap) 2016 HEPATITIS B VACCINES (1 of 3 - 19+ 3-dose series) 03/2016 Preventative Visit-Managed Medicaid 2016 CERVICAL CANCER SCREENING 2018 HPV/Cotest (21-29) 2018 PAP SMEAR 2018 HPV VACCINES (1 - 3-dose SCDM series) 2024 INFLUENZA VACCINE (#1) [address] [place] [id number] MED[facility] Care Teams Linux Systems Analyst Relationship Specialty Start Date End Date Rose oGldstein DO [address] [place] [address] PCP - General Family Practice 06/18/23
--- NOTE | 2025-07-09 15:37 | W.ED.ABDPA2 ---
HPI - Abdominal Pain General: Chief Complaint: Abdominal Pain Stated Complaint: abd pain / NV Time Seen by Provider: 07/09/25 14:56 Source: patient and family Mode of arrival: ambulatory Limitations: no limitations History of Present Illness: Patient is a 30-year-old female who presents to the emergency department complaining of epigastric pain that began earlier this morning but has slowly worsened, and about an hour ago got significantly worse and started to become associated with nausea and vomiting. States that she has taken 1 dose of Ozempic, this is the only relative history in terms of symptom onset otherwise she has never had this pain before. Does report a history of kidney infection in the past, however is not having any urinary symptoms. No fevers are reported, no change in bowel habits. States that she has been dizzy, mom present states that she has been very slow to respond and lethargic. Her vitals are stable at this time, she is reporting severe 10/10 pain, no previous abdominal surgeries other than hysterectomy. No vaginal bleeding or discharge. Denies possibility . Denies significant alcohol use. She does note that the pain is radiating towards her back. MD elicited complaint: abdominal pain Onset (ago): hour(s) Pain Consistency: constant Location: Epigastric Severity: severe Quality: stabbing and sharp Radiation: back Associated Symptoms: Reports nausea and vomiting; Denies bloating, change in stool character, chills, constipation, diarrhea, dysuria, fever(s) and hematochezia Related Data Home Medications ?Medication ?Instructions ?Recorded ?Confirmed lorazepam 0.5 mg tablet mg PO 03/12/24 01/28/25 zolpidem 10 mg tablet mg PO 03/12/24 01/28/25 Previous Rx's ?Medication ?Instructions ?Recorded albuterol sulfate 90 mcg/actuation 2 puff inhalation Q6H PRN 01/28/25 aerosol inhaler shortness of breath or wheezing #8.5 grams amoxicillin 875 mg-potassium 1 tab PO BID 7 days #14 tabs 01/28/25 clavulanate 125 mg tablet mwpaesoubevxjgo-cidiwyxpykgfbui-HI 5 ml PO Q6H PRN cold symptoms #118 01/28/25 2 mg-30 mg-10 mg/5 mL oral syrup mL (Bromfed DM) dexamethasone 2 mg tablet 10 mg (5 x 2 mg) PO DAILY 1 day #5 01/28/25 tabs cefdinir 300 mg capsule 300 mg PO BID 10 days #20 caps 07/09/25 ondansetron 4 mg disintegrating 4 mg PO TID PRN nausea and 07/09/25 tablet vomiting #30 tabs Allergies Allergy/AdvReac Type Severity Reaction Status Date / Time Sulfa (Sulfonamide Allergy ALGY-Rash Verified 01/28/25 14:19 Antibiotics) Review of Systems General: Reports: 10 or more systems reviewed and unremarkable except in HPI and below Const: Reports: change in appetite; Denies: fever(s), chills, change in weight or diaphoresis ENMT: Denies: throat pain or hoarseness Card: Denies: chest pain, palpitations or lightheadedness Resp: Denies: dyspnea, productive cough or wheezing GI: Reports: abdominal pain, nausea and vomiting; Denies: diarrhea, constipation, bloating, change in stool character or hematochezia : Denies: flank pain, difficulty voiding, dysuria, urinary frequency or urinary urgency Musc: Reports: back pain; Denies: neck pain Skin/Breast: Denies: rash or new lesions Neuro: Reports: dizziness; Denies: headache(s) PFSH ED PFSH: Medical History Hydradenitis History of substance abuse Family History Denies family history of Diabetes CAD (coronary artery disease) Clotting disorder Dementia Hyperlipidemia Psychiatric illness Chronic kidney disease (CKD) Suicide Anesthesia complication Bleeding disorder Family history of premature coronary artery disease Lung disease Cancer Hypertension Stroke Social History Smoking and tobacco/nicotine status: current every day tobacco/nicotine user Substance/Drug Use: current Physical Exam Const: COMMON NORMALS: patient oriented x3, alert and well nourished GENERAL APPEARANCE: cooperative NUTRITIONAL APPEARANCE: obese ORIENTATION/CONSCIOUSNESS: Yes awake OTHER: Tired appearing, uncomfortable Eye: COMMON NORMALS: Equal, round and reactive pupils present, EOMs intact bilaterally and conjunctivae normal CONJUNCTIVA: Yes conjunctivae normal PUPIL: Yes Equal, round and reactive pupils present Neck/C-Spine: COMMON NORMALS: full ROM, supple, no meningeal signs and no JVD Resp: COMMON NORMALS: normal respiratory effort, No retractions, No use of accessory muscles and clear to auscultation bilaterally AUSCULTATION: clear to auscultation bilaterally, no crackles, no rales, no rhonchi and no wheezes Cardio: COMMON NORMALS: no JVD, regular rate, regular rhythm, No gallops present (Cardio), No clicks present (Cardio), No murmurs present (Cardio) and No rub (Cardio) RATE: regular rate RHYTHM: regular rhythm GI: COMMON NORMALS: Normal to inspection, nondistended, normoactive bowel sounds present, Soft to palpation, No hepatosplenomegaly present and no masses AUSCULTATION: Yes normoactive bowel sounds PALPATION: Yes Soft to palpation, Yes Tenderness to palpation present (GI) (epigastric), No Guarding due to palpation present (GI), No Rigid due to palpation and Yes No hepatosplenomegaly present RECTAL EXAM: deferred Extremity: COMMON NORMALS: normal to inspection and full ROM Neuro: COMMON NORMALS: patient oriented x3, moves all extremities, no focal motor deficits and no sensory deficits noted SENSORIUM/ORIENTATION: Yes alert MENINGEAL SIGNS: Yes no meningeal signs Skin: COMMON NORMALS: no rashes or lesions noted GENERAL SKIN EXAM: no rashes or lesions noted Course Vital Signs: Vital signs: Vital Signs Temperature 97.6 F 07/09/25 14:57 Pulse Rate 76 07/09/25 18:00 Respiratory Rate 16 07/09/25 18:00 Blood Pressure 95/60 07/09/25 18:00 Pulse Oximetry 100 07/09/25 18:00 Oxygen Delivery Me thod Room Air 07/09/25 18:00 MDM - Abdominal Pain Medical Decision Making Patient presenting with abdominal pain began early this morning, but significantly worsened an hour prior to coming in. States that she took Ozempic for the first time recently, and is having epigastric pain. No significant alcohol abuse, but does have history of substance abuse and hepatitis C where she has chronic transaminitis. On lab work her CBC is unremarkable, mild acute on chronic transaminitis but nonspecific in this setting, as her lipase is normal and bilirubin is normal. She was tired appearing on exam, but vitals have been stable. She was given morphine which ameliorated her pain, Zofran control her nausea but she has not had any vomiting here. CT abdomen and pelvis does not demonstrate any acute pathology in the abdomen. Urinalysis shows evidence of moderate to severe urinary tract infection with no CT evidence of pyelonephritis. This could likely explain her symptoms of abdominal pain and overall feeling ill, and we will treat with cefdinir. She is rechecked prior to discharge states she feels quite a bit better, she is okay with treatment as an outpatient and she is given strict return precautions. Lab Data 07/09/25 16:07 07/09/25 16:07 Labs/Radiology: Radiology Impressions Abdomen/Pelvis CT 07/09/25 15:12 IMPRESSION: 1. Persistent splenomegaly. 2. Slight enlargement of the common bile duct, without intrahepatic biliary dilatation or obstructing focus identified. Finding can be further assessed for possible obstruction with serologic assessment and ultrasound. 3. Nonspecific mild distension of small bowel loops with fluid. The finding can reflect enteritis. 4. Lower lung pulmonary nodules with a 2.5 cm focus of nodules that likely reflects inflammatory small airways disease. The partially imaged 11 mm nodule in the right lower lobe should be completely imaged with unenhanced chest CT Laboratory Results WBC 7.86 10^3/uL (3.29-11.43) 07/09/25 16:07 RBC 4.51 10^6/uL (3.85-5.65) 07/09/25 16:07 Hgb 13.30 g/dL (11.27-16.99) 07/09/25 16:07 Hct 40.3 % (36-47) 07/09/25 16:07 MCV 89.4 fl (85-98) 07/09/25 16:07 MCH 29.5 pg (27-33) 07/09/25 16:07 MCHC 33.0 g/dL (30-55) 07/09/25 16:07 RDW 12.9 % (12.1-15.1) 07/09/25 16:07 Plt Count 205 10^3/cmm (157-399) 07/09/25 16:07 MPV 10.1 fL (7.4-10.4) 07/09/25 16:07 Neut % (Auto) 79.5 % 07/09/25 16:07 Lymph % (Auto) 14.1 % 07/09/25 16:07 [place] % (Auto) 4.5 % 07/09/25 16:07 Eos % (Auto) 1.3 % 07/09/25 16:07 Baso % (Auto) 0.3 % 07/09/25 16:07 Neut # (Auto) 6.26 10^3/uL (1.8-7.7) 07/09/25 16:07 Lymph # (Auto) 1.1 10^3/uL (0.8-4.8) 07/09/25 16:07 [place] # (Auto) 0.4 10^3/uL (0.2-0.9) 07/09/25 16:07 Eos # (Auto) 0.1 10^3/uL (0.0-0.8) 07/09/25 16:07 Baso # (Auto) 0.0 10^3/uL (0.0-0.1) 07/09/25 16:07 Nucleated RBC % (auto) 0 % 07/09/25 16:07 Nucleated RBCs # 0.0 /100WBC 07/09/25 16:07 Sodium 139 mmol/L (136-145) 07/09/25 16:07 Potassium 4.0 mmol/L (3.5-5.1) 07/09/25 16:07 Chloride 103 mmol/L (98-107) 07/09/25 16:07 Carbon Dioxide 27 mmol/L (22-29) 07/09/25 16:07 Anion Gap 13.0 (5-19) 07/09/25 16:07 BUN 9 mg/dL (6-20) 07/09/25 16:07 Creatinine 0.9 mg/dL (0.5-0.9) 07/09/25 16:07 GFR Calculation 74.6 mL/min (90-130) L 07/09/25 16:07 Glucose 89 mg/dL (65-115) 07/09/25 16:07 Calculated Osmolality 286 mOsm/kg (285-295) 07/09/25 16:07 Lactic Acid 0.5 mmol/L (0.5-2.2) 07/09/25 16:07 Calcium 9.1 mg/dL (8.5-10.5) 07/09/25 16:07 Total Bilirubin 0.5 mg/dL (0.15-1.2) 07/09/25 16:07 AST 67 U/L (0-32) H 07/09/25 16:07 ALT 96 U/L (0-33) H 07/09/25 16:07 Alkaline Phosphatase 75 U/L (35-105) 07/09/25 16:07 Total Protein 8.1 g/dL (6.6-8.7) 07/09/25 16:07 Albumin 4.1 g/dL (3.5-5.2) 07/09/25 16:07 Globulin 4.0 g/dL (1.3-4.6) 07/09/25 16:07 Lipase 13 U/L (13-60) 07/09/25 16:07 HCG, Qual Negative (Negative) 07/09/25 16:07 Urine Color Yellow (Yellow) 07/09/25 18:17 Urine Appearance Clear (CLEAR) 07/09/25 18:17 Urine pH 7.0 (5-7) 07/09/25 18:17 Ur Specific [place] 1.070 (1.005-1.030) H 07/09/25 18:17 Urine Protein Trace (Negative) A 07/09/25 18:17 Urine Glucose (UA) Negative (Normal) 07/09/25 18:17 Urine Ketones Negative (Negative) 07/09/25 18:17 Urine Blood 2+ (Negative) A 07/09/25 18:17 Urine Nitrate Positive (Negative) A 07/09/25 18:17 Urine Bilirubin Negative (Negative) 07/09/25 18:17 Urine Urobilinogen 1.0 mg/dL (Negative) 07/09/25 18:17 Ur Leukocyte Esterase 1+ (Negative) A 07/09/25 18:17 Urine RBC 0-2 /hpf (0-2) 07/09/25 18:17 Urine WBC 51-100 /hpf (0-5) H 07/09/25 18:17 Ur Squamous Epith Cells 0-5 /hpf (0-5) 07/09/25 18:17 Amorphous Sediment Not Reportable 07/09/25 18:17 Urine Bacteria 4+ /hpf (NONE) H 07/09/25 18:17 Hyaline Casts 0.40 /lpf 07/09/25 18:17 All radiology interpretation(s) finalized by discharge Discharge Plan Discharge Patient Disposition: Home Clinical Impression: Urinary tract infection Qualifiers: Urinary tract infection type: acute cystitis Hematuria presence: without hematuria Qualified Code(s): N30.00 - Acute cystitis without hematuria Condition: Stable Prescriptions: New cefdinir 300 mg capsule 300 mg PO BID 10 Days Qty: 20 0RF ondansetron 4 mg tablet,disintegrating 4 mg PO TID PRN (Reason: nausea and vomiting) Qty: 30 0RF No Action dexamethasone 2 mg tablet 10 mg PO DAILY 1 Days Qty: 5 0RF Rx Instructions: take all at same time today albuterol sulfate 90 mcg/actuation HFA aerosol inhaler 2 puff inhalation Q6H PRN (Reason: shortness of breath or wheezing) Qty: 8.5 0RF uemszdscgidmcym-zpzrbnnwq-CH [Bromfed DM] 2-30-10 mg/5 mL syrup 5 ml PO Q6H PRN (Reason: cold symptoms) Qty: 118 0RF amoxicillin-pot clavulanate 875-125 mg tablet 1 tab PO BID 7 Days Qty: 14 0RF lorazepam 0.5 mg tablet PO zolpidem 10 mg tablet PO Discharge Orders: Discharge ED (Routine); Ordered 07/09/25 Ordered By: Ian Griffin Referrals: Rose Goldstein DO [Primary Care Provider, Family Practice] Patient Instructions: Patient Portal & Karolina Instructions Activity Restrictions/Additional Instructions: UTI Discharge Instructions Medication Instructions: - Take cefdinir 300 mg orally twice daily for 10 days exactly as prescribed. Do not skip doses or stop the medication early, even if symptoms improve, to ensure full eradication of the infection and to prevent antibiotic resistance.[1]https://dailymed.[employer].nih.gov/dailymed/drugInfo.cfm?fvdgs=[id number] - Ondansetron 4 mg orally disintegrating tablets should be taken as needed for nausea. Follow the dosing instructions provided by the prescribing clinician. Important Considerations with Cefdinir: - Avoid taking cefdinir simultaneously with antacids containing magnesium or aluminum. If antacids are needed, take cefdinir at least 2 hours before or after the antacid to ensure proper absorption.[1]https://dailymed.[employer].nih.gov/dailymed/drugInfo.cfm?zngdl=[id number] - Iron supplements or multivitamins containing iron can significantly reduce cefdinir absorption. If iron supplementation is necessary, separate dosing by at least 2 hours before or after cefdinir.[1]https://[employer].gov/dailymed/drugInfo.cfm?xrlbb=[id number] - Be aware that cefdinir may cause diarrhea, which is common and usually resolves after completing the antibiotic course. However, if diarrhea becomes severe, watery, or bloody, or is accompanied by stomach cramps and fever?even up to two months after finishing cefdinir?contact a healthcare provider promptly as this may indicate Clostridioides difficile infection.[1]https://[employer].gov/daily[employer] Corporation/drugInfo.cfm?ihcdt=[id number] Potential Side Effects: - Common side effects include diarrhea, nausea, headache, abdominal pain, and rash. Most adverse events are mild and self-limiting.[1]https://[employer].gov/dailymed/drugInfo.cfm?zlonm=[id number] - If a rash develops or if there are signs of an allergic reaction (such as swelling, difficulty breathing, or severe skin reactions), discontinue cefdinir and seek medical attention immediately.[1]https://[employer].gov/dailymed/drugInfo.cfm?pgmrp=[id number] General Advice: - Cefdinir is effective against bacterial infections causing UTIs but does not treat viral infections such as the common cold.[1]https://[employer].gov/dailymed/drugInfo.cfm?whefp=[id number] - Complete the full 10-day course to reduce the risk of treatment failure and development of resistant bacteria.[1]https://[employer].gov/dailymed/drugInfo.cfm?nhfrj=[id number] - Maintain adequate hydration to help flush the urinary tract. - If symptoms such as fever, flank pain, worsening urinary symptoms, or no improvement after 48-72 hours of therapy occur, seek medical evaluation as this may indicate complicated infection or treatment failure.[2]https://[employer]/carlos/article-lookup/doi/10.1093/carlos/jqq234[3]https://jamanetwork.com/journals/jamanetworkopen/fullarticle/.1001/jamanetworkopen.2023.15222?utm_source=openOpenDNS&utm_medium=referral Follow-up: - Follow up with your primary care provider or urologist as recommended, especially if symptoms persist or recur. - A urine culture may be considered if symptoms do not resolve or if recurrent infections occur. These instructions are based on current FDA prescribing information for cefdinir and clinical guidelines for UTI management, emphasizing the importance of adherence, awareness of side effects, and timely medical follow-up.[1]https://[employer].gov/dailymed/drugInfo.cfm?jveuf=[id number][2]https://[employer]/carlos/article-lookup/doi/10.1093/carlos/ado113[3]https://jamanetwork.com/journals/jamanetworkopen/fullarticle/10.1001/jam anetworkopen.2023.35039?utm_source=openOpenDNS&utm_medium=referral References Cefdinirhttps://dailymed.[employer].nih.gov/dailymed/drugInfo.cfm?tbbsx=[id number]. Food and Drug Administration. Updated date: 2024-12-12. International Clinical Practice Guidelines for the Treatment of Acute Uncomplicated Cystitis and Pyelonephritis in Women: A 2010 Update by the Infectious Diseases Society of [place] and the Society for Microbiology and Infectious Diseaseshttps://academic.oup.com/carlos/article-lookup/doi/10.1093/carlos/lrz990. Cammie K, Citlaly TM, Corine KG, et al. Clinical Infectious Diseases : An Official Publication of the Infectious Diseases Society of [place]. 2011;52(5):e103-20. doi:10.1093/carlos/gky157. Guidelines for the Prevention, Diagnosis, and Management of Urinary Tract Infections in Pediatrics and Adults: A WikiGuidelines Group Consensus Statementhttps://jamanetwork.com/journals/jamanetworkopen/fullarticle/10.1001/jamanetworkopen.2023.89334?utm_source=openevidence&utm_medium=referral. Kian Z, Edna AT, Senia TRY ON BASTER, et al. ZAID Network Open. 2023;7(11):u8855862. doi:10.1001/jamanetworkopen.2023.82288. Print Language: Salvadorean Coding Level of Care Code ED Library Media Specialist for Arlette Mcdaniels
[2025-07-09 15:42] VITALS: RESP 16
[2025-07-09] MEDS: morphine 4 mg/mL SDV 1 mL IVP (15:42)
[2025-07-09] MEDS: metoclopramide 5 mg/mL SDV 2 mL 10 MG IVP (15:42)
[2025-07-09 16:04] VITALS: BP 111/84; PULSE 72; RESP 18; O2SAT 100
[2025-07-09 16:18] LABS: Hematocrit 40.3 % (36-47); Hemoglobin 13.30 g/dL (11.27-16.99); Mean Corpuscular HGB Conc 33.0 g/dL (30-55); Mean Corpuscular Hemoglobin 29.5 pg (27-33); Mean Corpuscular Volume 89.4 fl (85-98); Nucleated Red Blood Cells % 0 %; Platelet Count 205 10^3/cmm (157-399); Red Blood Count 4.51 10^6/uL (3.85-5.65); White Blood Count 7.86 10^3/uL (3.29-11.43)
[2025-07-09 16:36] LABS: Alanine Aminotransferase 96 U/L (0-33); Albumin Level 4.1 g/dL (3.5-5.2); Alkaline Phosphatase 75 U/L (35-105); Anion Gap 13.0 (5-19); Aspartate Amino Transferase 67 U/L (0-32); Blood Urea Nitrogen 9 mg/dL (6-20); Calcium 9.1 mg/dL (8.5-10.5); Carbon Dioxide 27 mmol/L (22-29); Chloride 103 mmol/L (98-107); Creatinine Clr Calc Pharmacy 92.1424; Globulin 4.0 g/dL (1.3-4.6); Glucose 89 mg/dL (65-115); Lipase 13 U/L (13-60); Osmolality Calculated 286 mOsm/kg (285-295); Potassium 4.0 mmol/L (3.5-5.1); Sodium 139 mmol/L (136-145); Total Protein 8.1 g/dL (6.6-8.7)
[2025-07-09 16:38] LABS: HCG, Serum Qual Negative (Negative)
[2025-07-09 16:40] LABS: Lactic Sepsis W/Reflex 0.5 mmol/L (0.5-2.2)
[2025-07-09 16:43] VITALS: BP 109/71; PULSE 75; RESP 16; O2SAT 100
[2025-07-09 17:00] VITALS: BP 98/61; PULSE 75; RESP 16; O2SAT 100
[2025-07-09] MEDS: iohexol 350 mg/mL 500 mL Btl (per mL) IV (17:16)
[2025-07-09 18:00] VITALS: BP 95/60; PULSE 76; RESP 16; O2SAT 100
[2025-07-09 18:27] LABS: Glucose Urine UA Negative (Normal); Nitrate Urine Positive (Negative)
[2025-07-09 18:36] LABS: Specific Gravity, Urine 1.070 (1.005-1.030)
[2025-07-09] MEDS: ondansetron 2 mg/ML SDV 2 mL 4 MG IVP (18:59)
== END 2025-07-09 19:11 | disposition home or self-care (01) ==
PROVIDERS: Emergency Medicine; Emergency Provider Physician Assistant; PCP Family Medicine
DX: N30.00 Acute cystitis without hematuria (principal); Z72.0 Tobacco use
CPT/HCPCS: 36415; 74177; 80053; 81001; 83605; 83690; 84703; 85025; 87040; 87077; 87086; 87186; 96361; 96374; 96375; 99285; J2270; J2405; J2765; J7030; J9999

== ENCOUNTER → 2025-09-04 18:04 | Outpatient (BNVA) | payer BC, MEDICAID, SELFPAY | PROVIDERS: PCP Family Medicine | DX: R39.9 Unspecified symptoms and signs involving the genitourinary system (principal) | CPT/HCPCS: 81000; 81025; 87077; 87086; 87184 ==